=== PATIENT | male | born 1950 | race Caucasian/White ===

== ENCOUNTER 2021-03-15 11:49 | Inpatient (IN) | payer MEDICARE ==
[~2021-03-15] VITALS: Ht 177.8 cm; Wt 188.5 kg
[~2021-03-15 11:49] MED LIST: CYAN1000I; HYDACE7.5; VENL25
[2021-03-15 12:25] LABS: BASOPHILS ABSOLUTE AUTO 0.04 K/mm3 (0.00-0.23); BASOPHILS PERCENT AUTO 0 % (0-2); EOSINOPHILS ABSOLUTE AUTO 0.05 K/mm3 (0.00-0.68); EOSINOPHILS PERCENT AUTO 1 % (0-6); Hemoglobin 14.7 g/dL (13.5-17.5); IMMATURE GRAN ABSOLUTE AUTO 0.04 K/mm3 (0.00-0.10); IMMATURE GRAN PERCENT AUTO 0 % (0-1); LYMPHOCYTES ABSOLUTE AUTO 1.38 K/mm3 (0.84-5.20); LYMPHOCYTES PERCENT AUTO 14 % (21-46); MONOCYTES ABSOLUTE AUTO 0.65 K/mm3 (0.16-1.47); MONOCYTES PERCENT AUTO 7 % (4-13); Mean Corpuscular HGB 29.2 pg (26.0-34.0); Mean Corpuscular Volume 97 fL (80-100); Mean Platelet Volume 10.5 fL (9.1-12.4); NEUTROPHILS ABSOLUTE AUTO 7.47 K/mm3 (1.96-9.15); NEUTROPHILS PERCENT AUTO 78 % (41-73); Platelet Count 158 K/mm3 (150-400); RDW Coefficient Variation 16.4 % (11.7-14.2); RDW Standard Deviation 57.8 fL (35.1-46.3); Red Blood Cell Count 5.03 M/mm3 (4.30-5.90); White Blood Cell Count 9.63 K/mm3 (4.00-11.30)
[2021-03-15 12:40] LABS: Alanine Aminotransfer (ALT/SGP 39 U/L (12-78); Albumin, Blood 3.3 g/dL (3.4-5.0); Albumin/Globulin Ratio 0.9 (0.8-1.8); Alk Phos 100 U/L (50-136); Anion Gap 3 mmol/L (6-16); Aspartate Aminotrans (AST/SGOT 19 U/L (12-37); Bilirubin, Total 0.4 mg/dL (0.1-1.0); Blood Urea Nitrogen 26 mg/dL (8-24); Bun/Creatinine Ratio 21.1 (12.0-20.0); CO2, Blood 35 mmol/L (21-32); Calcium, Blood 8.6 mg/dL (8.5-10.1); Chloride, Blood 105 mmol/L (98-108); Creatinine, Blood 1.23 mg/dL (0.60-1.20); Globulin, Blood 3.5 g/dL (2.2-4.0); Glomerular Filtration Rate >60 (60-); Glucose, Blood 113 mg/dL (70-99); Potassium, Blood 4.2 mmol/L (3.5-5.5); Sodium, Blood 143 mmol/L (136-145); Total Protein, Blood 6.8 g/dL (6.4-8.2); Troponin I 0.222 ng/mL (0.000-0.040)
[2021-03-15 12:52] LABS: PCO2 Arterial 82.1 mmHg (35-45); PO2 Arterial 48.8 mmHg (80-100); pH Blood Arterial 7.28 (7.35-7.45)
[2021-03-15 13:22] LABS: Influenza A, PCR NEGATIVE (NEGATIVE); Influenza B, PCR NEGATIVE (NEGATIVE); Resp Syncytial Virus, PCR NEGATIVE (NEGATIVE); SARS-Cov-2 (COVID-19) PCR, MMC NEGATIVE (NEGATIVE)
[2021-03-15 14:25] LABS: Base Excess Venous 11.2 mmol/L; Bicarbonate Venous 31.3 mmol/L (24.0-30.0); PCO2 Venous 79.7 mmHg (38-42); PO2 Venous 97.8 mmHg (38-42); pH Blood Venous 7.29 (7.34-7.37)
[2021-03-15 14:26] LABS: International Normalized Ratio 1.03; Prothrombin Time Results 11.1 Sec (9.7-11.5)
--- NOTE | 2021-03-15 15:41 | NUR ---
Echocardiogram completed
--- NOTE | 2021-03-15 15:58 | NUR ---
WILL ASSESS CHART FOR HX OF INFECTIONS.
[2021-03-15 16:43] LABS: PO2 Arterial 72.5 mmHg (80-100)
[2021-03-15 16:44] LABS: PCO2 Arterial 87.8 mmHg (35-45); pH Blood Arterial 7.26 (7.35-7.45)
--- NOTE | 2021-03-15 18:01 | NUR ---
Pt minimally responsive on bipap. Assisted bedside nursing mittal catheter placed and ua sent for toxicology and ua. Will try to contact .
[2021-03-15 18:05] LABS: U Amphetamine Screen Not Detected; U Barbituate Screen Not Detected; U Benzodiazapine Screen Not Detected; U Buprenorphine Screen Not Detected; U Cannabinoids Screen Not Detected; U Cocaine Screen Not Detected; U Methadone Screen Not Detected; U Methamphetamine Screen Not Detected; U Opiates Screen Not Detected; U Oxycodone Screen Not Detected; U Phencyclidine Screen Not Detected; U Propoxyphene Screen Not Detected
[2021-03-15 18:09] LABS: Source, Urine Catheter
[2021-03-15 18:28] LABS: Bilirubin, Urine Neg (Neg); Blood, Urine 1+ (Neg); Glucose Qualitative, Urine Neg (Neg); Ketones, Urine Neg (Neg); Leukocyte Esterase, Urine 1+ (Neg); Nitrite, Urine Neg (Neg); Protein, Urine 1+ (Neg); Urobilinogen, Urine NORM (Normal)
[2021-03-15 18:30] LABS: Appearance, Urine Hazy (Clear); Color, Urine Yellow (P-Yellow)
[2021-03-15 18:31] LABS: Bacteria Few /hpf; Squamous Epithelial Cells Few /hpf (Few)
--- NOTE | 2021-03-15 18:44 | NUR ---
message left with pt son to contact hospital for plan of care
--- NOTE | 2021-03-15 18:49 | NUR ---
1525 ADMIT NOTE. PT WAS ADMITTED VIA STRETCHER TO ICU-4 AND MOVED OVER TO BED AT WHICH TIME HE BEGAN TO WAVE HIS ARM FOR ONLY A FEW MINUTES BUT THEN RETURNED TO AN OBTUNDED STATE WHERE EVEN A STERNAL RUB WAS NOT SUFFICENT TO AROUSE MUCH RESPONSE. PT BIPAP SETTING ADJUSTED PER RT AT AND DR RYAN REQUEST. PT CHAVARRIA WAS INSERTED PER SHADY LEIJA, AND UA AND UA TOX. WAS SENT TO LAB WITH PENDING RESULTS.
--- NOTE | 2021-03-15 18:59 | NUR ---
APPROX. 1800... PT TAKEN TO CT FOR CT HEAD. PT AROUSED AND CONFUSED WHEN LIFTED AND PLACE ON THE CT TABLE. PT REMAINED SOMEWHAT RESTLESS EVEN WHEN RETURNED AND THEN CALMED DOWN AND RETURNED TO SOMULANT STATE. I/O NOTED. PT BP WAS ELEVATED BUT WHEN CALM CAME DOWN TO 180 RANGE NOTED. PT HAS R UPPER ARM POWERGLIDE AND L HAND IV SITES BOTH SL. ABG'S ARE PENDING. NOC SHIFT TO REDRESS LOWER LEGS AND WILL CALL FAMILY NUMBERS PRECIOUSLY OBTAINED WERE NOT BEING ANSWERED AND INFORMATION WAS UNOBTAINABLE. ULTRASOUND IN FOR DVT STUDIES.
[2021-03-15 20:21] LABS: PCO2 Arterial 66.2 mmHg (35-45); PO2 Arterial 59.7 mmHg (80-100); pH Blood Arterial 7.34 (7.35-7.45)
--- NOTE | 2021-03-15 21:00 | NUR ---
ASUMTION OF CARE: PATIENT VERY DROWSY ON ASSESSMENT AND UNABLE TO WAKE UP ENOUGH TO SPEAK WITH PATIENT DIRECTLY. ADMISSION HX OBTAINED THROUGH . PATIENT BLOOD PRESSURE CONTINUES TO BE ELEVATED BUT PRNS ARE ORDERED IF NEEDED. PATIENT RESTING COMFORTABLY ON BIPAP AND ABG OBTAINED IS MUCH BETTER. WILL CONTINUE BIPAP FOR THE DURATION OF EVENING LONG TOLERATED AND GET REPEAT ABG IN THE AM
[2021-03-16 03:53] LABS: BASOPHILS ABSOLUTE AUTO 0.01 K/mm3 (0.00-0.23); BASOPHILS PERCENT AUTO 0 % (0-2); EOSINOPHILS PERCENT AUTO 0 % (0-6); Hematocrit 45.6 % (37.0-53.0); Hemoglobin 13.9 g/dL (13.5-17.5); IMMATURE GRAN ABSOLUTE AUTO 0.07 K/mm3 (0.00-0.10); IMMATURE GRAN PERCENT AUTO 1 % (0-1); LYMPHOCYTES PERCENT AUTO 6 % (21-46); MONOCYTES ABSOLUTE AUTO 0.39 K/mm3 (0.16-1.47); MONOCYTES PERCENT AUTO 4 % (4-13); Mean Corpuscular HGB 29.6 pg (26.0-34.0); Mean Corpuscular HGB Conc 30.5 g/dL (31.5-36.5); Mean Corpuscular Volume 97 fL (80-100); Mean Platelet Volume 10.5 fL (9.1-12.4); NEUTROPHILS ABSOLUTE AUTO 8.96 K/mm3 (1.96-9.15); NEUTROPHILS PERCENT AUTO 89 % (41-73); Platelet Count 158 K/mm3 (150-400); RDW Coefficient Variation 16.1 % (11.7-14.2); RDW Standard Deviation 57.3 fL (35.1-46.3); White Blood Cell Count 10.03 K/mm3 (4.00-11.30)
[2021-03-16 04:11] LABS: Alanine Aminotransfer (ALT/SGP 34 U/L (12-78); Albumin/Globulin Ratio 0.9 (0.8-1.8); Alk Phos 90 U/L (50-136); Anion Gap 4 mmol/L (6-16); Aspartate Aminotrans (AST/SGOT 15 U/L (12-37); Bilirubin, Total 0.3 mg/dL (0.1-1.0); Blood Urea Nitrogen 30 mg/dL (8-24); Bun/Creatinine Ratio 26.1 (12.0-20.0); CO2, Blood 37 mmol/L (21-32); Calcium, Blood 8.3 mg/dL (8.5-10.1); Chloride, Blood 104 mmol/L (98-108); Creatinine, Blood 1.15 mg/dL (0.60-1.20); Globulin, Blood 3.2 g/dL (2.2-4.0); Glomerular Filtration Rate >60 (60-); Glucose, Blood 242 mg/dL (70-99); Sodium, Blood 145 mmol/L (136-145); Total Protein, Blood 6.2 g/dL (6.4-8.2)
--- NOTE | 2021-03-16 06:33 | NUR ---
SUMMARY: PATIENT AGITATED AT TIMES BUT IS VERY REDIRECTABLE ONCE AWAKE. PATIENT OCCASIONALLY TRIES TO GET BIPAP OFF BUT THEN GOES BACK TO SLEEP VERY QUICKLY. PATIENT PLACED ON 4L NC TO BRUSH TEETH AND EAT OVERNIGHT WITH NO ISSUES WITNESSED. CO2 REMAINS IN 30S. PATIENT WORE BIPAP THE MAJORITY OF THE NIGHT. PATIENT STILL IN 1ST DEGREE HEART BLOCK BUT BP HAS REMAINED STABLE. FAMILY UPDATED MULTIPLE TIMES OVERNIGHT AND ALL QUESTIONS ANSWERED.
--- NOTE | 2021-03-16 11:29 | NUR ---
AM NOTE... JUST A LITTE BEFORE 0800 PT WAS TAKEN OFF OF BIPAP AND PLACED ON NC AT 4L BUT PT WAS QUITE CONFUSED AND BORDERLINE AGITATED. PT RETURNED TO BIPAP FOR ABOUT 2 HOURS AND THEN ABLE TO DECREASE O2 DOWN TO 2L. HOWEVER PT CONT TO BE VERY FORGETFUL AND DIFFICULT TO FOLLOW COMMMANDS. WILL ATTEMPT TO FOLLOW THIS W/O EXTRA MEDICATION AT THIS TIME. RESTRAINTS WERE NEEDED TO REMIND PT AN KEEP THE MASK AND NC ON.
[2021-03-16] MEDS ORDERED: CARV25 PO (14:46)
[2021-03-16] MEDS ORDERED: FURO40 PO (14:47)
[2021-03-16] MEDS ORDERED: NOVOLOG FL100 UNIT/3 (14:52)
[2021-03-16] MEDS ORDERED: LISI20 PO (14:53)
[2021-03-16] MEDS ORDERED: METF500 PO (14:53)
[2021-03-16] MEDS ORDERED: POTA10T PO (14:55)
[2021-03-16] MEDS ORDERED: Voltaren100 GM TOP (14:56)
--- NOTE | 2021-03-16 17:41 | NUR ---
Spiritual care note: Mr. Medley appeared pleasant and a bit confused. He smiles easily and made little jokes. I was tasked per admit trigger to speak to pt about advanced care planning. Per RN, pt was not mentally clear enought for this conversation. I will attempt to meet with family in coming days.
--- NOTE | 2021-03-16 18:21 | NUR ---
PT IS SETTING UP WATCHING TV, TAKLING TO FAMILY ON PHONE, FEEDING SELF AND TALKING TO STAFF. WHILE PT IS ALERT, HE REMAINS SOMEWHAT MILDLY CONFUSED AND WILLING SEEMS TO BE COVERING/COMPENSATING FOR SOME OF HIS LAPSES IN MEMORY. VS ARE NOTED AND IMPROVED WITH MEDICATION CHANGES. PT CBG NOTED AND IS EATING AND TAKING PO LIQUIDS WELL. PT HAS BEEN TOLERATING 2L NC SENCE JUST BEFORE 1100 THIS AM W/O SOB DESATURATION. HOWEVERM BIPAP REMAIN IN ROOM.
--- NOTE | 2021-03-16 22:46 | NUR ---
ASSUMPTION OF CARE PT SITTING UP IN BED ON 2L NC SPO2 94%. PT AWAKE AND CALM TALKING TO FAMILY MEMBER ON PHONE. VSS WITH EXCEPTION OF SBP, SCHEDULED BP MEDS GIVEN. PT ORIENTED EXCEPT TO DATE/TIME. CHAVARRIA PATENT AND DRAINING TO GRAVITY, URINE NOTED TO BE BLOOD TINGED, WILL CONTINUE TO MONITOR. IV'S CURRENTLY SALINE LOCKED.
[2021-03-17 03:38] LABS: PCO2 Arterial 60.9 mmHg (35-45); PO2 Arterial 66.9 mmHg (80-100)
[2021-03-17 04:38] LABS: BASOPHILS ABSOLUTE AUTO 0.02 K/mm3 (0.00-0.23); BASOPHILS PERCENT AUTO 0 % (0-2); EOSINOPHILS PERCENT AUTO 0 % (0-6); Hematocrit 46.3 % (37.0-53.0); Hemoglobin 14.3 g/dL (13.5-17.5); IMMATURE GRAN ABSOLUTE AUTO 0.04 K/mm3 (0.00-0.10); IMMATURE GRAN PERCENT AUTO 0 % (0-1); LYMPHOCYTES ABSOLUTE AUTO 1.02 K/mm3 (0.84-5.20); LYMPHOCYTES PERCENT AUTO 9 % (21-46); MONOCYTES ABSOLUTE AUTO 0.87 K/mm3 (0.16-1.47); MONOCYTES PERCENT AUTO 8 % (4-13); Mean Corpuscular HGB 29.5 pg (26.0-34.0); Mean Corpuscular HGB Conc 30.9 g/dL (31.5-36.5); Mean Corpuscular Volume 96 fL (80-100); Mean Platelet Volume 10.7 fL (9.1-12.4); NEUTROPHILS ABSOLUTE AUTO 8.93 K/mm3 (1.96-9.15); NEUTROPHILS PERCENT AUTO 82 % (41-73); Platelet Count 174 K/mm3 (150-400); RDW Coefficient Variation 16.4 % (11.7-14.2); RDW Standard Deviation 57.2 fL (35.1-46.3); Red Blood Cell Count 4.85 M/mm3 (4.30-5.90); White Blood Cell Count 10.88 K/mm3 (4.00-11.30)
[2021-03-17 04:57] LABS: Albumin, Blood 3.1 g/dL (3.4-5.0); Anion Gap 2 mmol/L (6-16); Blood Urea Nitrogen 31 mg/dL (8-24); Bun/Creatinine Ratio 27.4 (12.0-20.0); CHOL/HDL RATIO 5.6; CO2, Blood 37 mmol/L (21-32); Calcium, Blood 8.3 mg/dL (8.5-10.1); Chloride, Blood 102 mmol/L (98-108); Cholesterol 145 mg/dL (50-200); Creatinine, Blood 1.13 mg/dL (0.60-1.20); Glomerular Filtration Rate >60 (60-); Glucose, Blood 170 mg/dL (70-99); HDL Cholesterol 26 mg/dL (>39); LDL/HDL RATIO 3.1; Low Density Lipoprotein Chol 80 mg/dL (0-110); Phosphorus, Blood 3.1 mg/dL (2.5-4.9); Potassium, Blood 3.9 mmol/L (3.5-5.5); Sodium, Blood 141 mmol/L (136-145); Triglycerides 195 mg/dL (30-160); Very Low Density Lipoprot Chol 39 mg/dL (6-32)
--- NOTE | 2021-03-17 05:27 | NUR ---
TRANSFER/SHIFT SUMMARY PT ARRIVED TO THE UNIT AROUND 0025, ALERT, CALM, AND CONFUSED. PT WAS ORIENTED ONLY TO SELF. BP 172/86. HR 80'S. O2 SATS >90% ON 2LPM VIA NC. PT ABLE TO MOVE ALL EXTREMITIES WITH NORMAL STRENGTH. PERIPHERAL PULSES STRONG AND PRESENT. CHAVARRIA SHOWED RED/PINK URINE OUTPUT. CHAVARRIA FLUSHED WITH SEVERAL SMALL BLOOD CLOTS EMPTYING. CHAVARRIA CONTINUED TO DRAIN RED/PINK URINE WITH SOME SMALL CLOTS. PT DENIED ANY PAIN AT CHAVARRIA SITE BUT REPORTED PAIN IN EDEMATOUS SCROTUM. VITALS REMAIND STABLE T/O THE SHIFT. PT ON BIPAP FOR SHORT TIME, BECAME VERY ANXIOUS AND AGITATED AND PULLED OFF TELE, BIPAP, PULSE OX, AND WAS PULLING ON IV. PT STATED HE WANTED TO LEAVE BECAUSE HE WAS "TUCKED INTO A CUBBY" AND "THIS IS ALL A CONSPIRACY TO KILL ME". PT WAS EVENTUALLY CALMED AND REDIRECTED INTO BED. PT WAS THEN ON NASAL CANNULA AT 2LPM T/O THE REST OF THE SHIFT WITH IMPROVEMENT IN AGITATION.
[2021-03-17 09:34] LABS: PCO2 Arterial 68 mmHg (35-45); PO2 Arterial 53.5 mmHg (80-100); pH Blood Arterial 7.37 (7.35-7.45)
--- NOTE | 2021-03-17 18:04 | NUR ---
PT ABLE TO TRANSFER ASSIST X2 FROM BED TO BSC. PT HAS IMPROVING MENTATION. CHAVARRIA OUTPUT STILL HAS SEDIMENT AND SMALL RED CLOTS. BLOOD SUGARS REQUIRED CORRECTION EACH TIME. PT REQUESTED/RECEIVED 2 PROTEIN-RICH SNACKS. PT'S LEG WOUNDS REDRESSED. PT REPORTS NO FURTHER COMPLAINTS AT THIS TIME.
[2021-03-18 04:33] LABS: Albumin, Blood 3.1 g/dL (3.4-5.0); Anion Gap 2 mmol/L (6-16); Blood Urea Nitrogen 27 mg/dL (8-24); Bun/Creatinine Ratio 29.9 (12.0-20.0); CO2, Blood 37 mmol/L (21-32); Calcium, Blood 8.5 mg/dL (8.5-10.1); Chloride, Blood 102 mmol/L (98-108); Glomerular Filtration Rate >60 (60-); Glucose, Blood 186 mg/dL (70-99); Phosphorus, Blood 2.9 mg/dL (2.5-4.9); Potassium, Blood 4.1 mmol/L (3.5-5.5); Sodium, Blood 141 mmol/L (136-145)
[2021-03-18 05:29] LABS: PCO2 Arterial 64.2 mmHg (35-45); PO2 Arterial 60.1 mmHg (80-100); pH Blood Arterial 7.41 (7.35-7.45)
--- NOTE | 2021-03-18 05:29 | NUR ---
SHIFT SUMMARY NO ACUTE CHANGES THIS SHIFT. PT A&OX3. OCCASIONAL CONFUSION BUT REORIENTS EASILY. SP02>92% ON 1L NC. PT REFUSED BIPAP. TELEMETRY READS SR W/ PACS & PVCS, HR 80'S. PT HAD ELEVATED BP, MEDICATED W/ HYDRALAZINE X2 THIS SHIFT. PT HAS CHAVARRIA CATHETER DRAINING YELLOW URINE W/ SMALL RED CLOTS. PT C/O OF BACK PAIN, REPOSITIONED FOR PAIN RELIEF. PT SLEPT APPROX 2 HOURS DURING SHIFT, STATES HE DOES NOT SLEEP MUCH AT NIGHT. WATCHED TV MOST OF NIGHT. CALL LIGHT IN REACH. WILL GIVE REPORT TO ONCOMING NURSE.
[2021-03-18] MEDS ORDERED: AMLO5 PO (13:15)
[2021-03-18] MEDS ORDERED: ASPI325 PO (13:16)
[2021-03-18] MEDS ORDERED: ATOR40TA PO (13:17)
[2021-03-18] MEDS ORDERED: INSULANPEN SC (13:19)
[2021-03-18] MEDS ORDERED: COMBIVENT RESPIM4 G1 INH (13:20)
[2021-03-18] MEDS ORDERED: NICO21TP TOP (13:20)
[2021-03-18] MEDS ORDERED: ONDA4ODT MM (13:21)
[2021-03-18] MEDS ORDERED: NYSTATIN15 GM TOP (13:21)
--- NOTE | 2021-03-18 18:58 | NUR ---
PT DISCHARGED TO HOME AT 1730 WITH VIA WHEELCHAIR WITH RX LIST, OXYGEN THERAPY FOR HOME, AND NO CARDIAC MONITORING. PT AND EDUCATED ON RX LIST AND F/U APPTS, AND REPORTED NO ADDITIONAL QUESTIONS AT THIS TIME.
== END 2021-03-18 17:37 | disposition home health service (06) | DRG 280 ==
LOC: ER 11:49 → ERHOLD 14:04 → ICUE 14:04 → PCU 14:04 → ICUE 15:25 → PCU 03-17 00:25
PROVIDERS: Emergency Medicine; Internal Medicine Critical Care Medicine; Nurse Practitioner Acute Care; ADMIT Internal Medicine
PROC: 5A09357 Assistance with Respiratory Ventilation, Less than 24 Consecutive Hours, Continuous Positive Airway Pressure (ICD-10-PCS; principal; 2021-03-16)
DX: I11.0 Hypertensive heart disease with heart failure (principal); I21.A1 Myocardial infarction type 2; G92 Toxic encephalopathy; J96.21 Acute and chronic respiratory failure with hypoxia; J96.22 Acute and chronic respiratory failure with hypercapnia; J44.1 Chronic obstructive pulmonary disease with (acute) exacerbation; Z68.43 Body mass index [BMI] 50.0-59.9, adult; Z20.822 Contact with and (suspected) exposure to COVID-19; M19.90 Unspecified osteoarthritis, unspecified site; E66.01 Morbid (severe) obesity due to excess calories; F42.9 Obsessive-compulsive disorder, unspecified; G47.33 Obstructive sleep apnea (adult) (pediatric); E11.9 Type 2 diabetes mellitus without complications; I50.33 Acute on chronic diastolic (congestive) heart failure; I27.20 Pulmonary hypertension, unspecified; I44.0 Atrioventricular block, first degree; D51.0 Vitamin B12 deficiency anemia due to intrinsic factor deficiency; Z87.891 Personal history of nicotine dependence; Z79.4 Long term (current) use of insulin; Z79.899 Other long term (current) drug therapy; Z91.19 Patient's noncompliance with other medical treatment and regimen
CPT/HCPCS: 0241U; 36415; 36600; 51702; 70450; 71045; 80053; 80061; 80069; 81001; 82803; 82947; 83036; 83735; 83880; 84443; 84484; 85025; 85610; 85730; 93005; 93010; 93970; 94010; 94640; 94660; 94761; 94762; 96374; 96375; 99285-25; A9270; A9270-GY; C1751; C8923; J0360; J1644; J1940; J2930; Q9957

== ENCOUNTER 2022-03-02 09:10 | Inpatient (IN) | payer OTHER ==
[~2022-03-02] VITALS: Ht 177.8 cm; Wt 184.1 kg
[~2022-03-02 09:10] MED LIST changes: +AMLO5 PO; +ASPI325 PO; +ATOR40TA PO; +CARV25 PO; +COMBIVENT RESPIM4 G1 INH; +FURO40 PO; +INSULANPEN SC; +METF500 PO; +NICO21TP TOP; +NOVOLOG FL100 UNIT/3; +NYSTATIN15 GM TOP; +ONDA4ODT MM; +POTA10T PO; +Voltaren100 GM TOP; +ZESTRIL40 M1 PO
[2022-03-02 10:16] LABS: BASOPHILS ABSOLUTE AUTO 0.05 K/mm3 (0.00-0.23); BASOPHILS PERCENT AUTO 1 % (0-2); EOSINOPHILS ABSOLUTE AUTO 0.06 K/mm3 (0.00-0.68); EOSINOPHILS PERCENT AUTO 1 % (0-6); Hematocrit 44.1 % (37.0-53.0); Hemoglobin 13.3 g/dL (13.5-17.5); IMMATURE GRAN ABSOLUTE AUTO 0.07 K/mm3 (0.00-0.10); IMMATURE GRAN PERCENT AUTO 1 % (0-1); LYMPHOCYTES ABSOLUTE AUTO 0.78 K/mm3 (0.84-5.20); LYMPHOCYTES PERCENT AUTO 8 % (21-46); MONOCYTES ABSOLUTE AUTO 0.54 K/mm3 (0.16-1.47); MONOCYTES PERCENT AUTO 6 % (4-13); Mean Corpuscular HGB 29.2 pg (26.0-34.0); Mean Corpuscular HGB Conc 30.2 g/dL (31.5-36.5); Mean Corpuscular Volume 97 fL (80-100); Mean Platelet Volume 10.3 fL (9.1-12.4); NEUTROPHILS ABSOLUTE AUTO 7.97 K/mm3 (1.96-9.15); NEUTROPHILS PERCENT AUTO 84 % (41-73); Platelet Count 204 K/mm3 (150-400); RDW Coefficient Variation 15.1 % (11.7-14.2); RDW Standard Deviation 53.7 fL (35.1-46.3); Red Blood Cell Count 4.56 M/mm3 (4.30-5.90); White Blood Cell Count 9.47 K/mm3 (4.00-11.30)
[2022-03-02 10:19] LABS: Base Excess Venous 9.8 mmol/L; PCO2 Venous 65.1 mmHg (38-42); pH Blood Venous 7.34 (7.34-7.37)
[2022-03-02 10:47] LABS: Alanine Aminotransfer (ALT/SGP 47 U/L (12-78); Albumin, Blood 3.6 g/dL (3.4-5.0); Albumin/Globulin Ratio 0.9 (0.8-1.8); Alk Phos 101 U/L (50-136); Anion Gap 4 mmol/L (6-16); Aspartate Aminotrans (AST/SGOT 21 U/L (12-37); Bilirubin, Total 0.6 mg/dL (0.1-1.0); Blood Urea Nitrogen 14 mg/dL (8-24); Bun/Creatinine Ratio 19.2 (12.0-20.0); CO2, Blood 34 mmol/L (21-32); Calcium, Blood 9.1 mg/dL (8.5-10.1); Chloride, Blood 100 mmol/L (98-108); Creatinine, Blood 0.73 mg/dL (0.60-1.20); Globulin, Blood 4.1 g/dL (2.2-4.0); Glomerular Filtration Rate >60 (60-); Glucose, Blood 152 mg/dL (70-99); Potassium, Blood 3.9 mmol/L (3.5-5.5); Sodium, Blood 138 mmol/L (136-145); Total Protein, Blood 7.7 g/dL (6.4-8.2)
[2022-03-02] MEDS ORDERED: ASPI81CH PO (11:07)
[2022-03-02] MEDS ORDERED: CELE100 PO (11:08)
[2022-03-02 12:10] LABS: Influenza A, PCR NEGATIVE (NEGATIVE); Influenza B, PCR NEGATIVE (NEGATIVE); Resp Syncytial Virus, PCR NEGATIVE (NEGATIVE); SARS-Cov-2 (COVID-19) PCR, MMC NEGATIVE (NEGATIVE)
[2022-03-02 12:43] LABS: PCO2 Arterial 70 mmHg (35-45); PO2 Arterial 66.8 mmHg (80-100); pH Blood Arterial 7.32 (7.35-7.45)
--- NOTE | 2022-03-02 14:00 | NUR ---
ADMIT PT ARRIVED TO ICU ROOM 4 VIA ER BED AT 1340. PT ON BIPAP 16/8, FIO2 30%. PT AWAKENS TO VERBAL STIMULI AND ANSWERS SOME QUESTIONS APPROPRIATELY. PT QUICKLY BACK TO SLEEP WHEN NOT TALKING. VITAL SIGNS STABLE. IV'S SALINE LOCKED. PT WITH REDDENED AND DRY SKIN TO BLE'S BELOW KNEES. SMALL ULCER TO RIGHT REED NOTED. SEE PHOTOS IN CHART. WILL CONTINUE TO MONITOR.
[2022-03-02 15:46] LABS: PCO2 Arterial 61.8 mmHg (35-45); PO2 Arterial 66.3 mmHg (80-100); pH Blood Arterial 7.38 (7.35-7.45)
[2022-03-02 17:12] LABS: Source, Urine Foley catheter
[2022-03-02 17:27] LABS: Appearance, Urine Clear (Clear); Bilirubin, Urine Neg (Neg); Blood, Urine 1+ (Neg); Color, Urine Yellow (P-Yellow); Glucose Qualitative, Urine Neg (Neg); Ketones, Urine Neg (Neg); Leukocyte Esterase, Urine Neg (Neg); Nitrite, Urine Neg (Neg); Protein, Urine 2+ (Neg); Specific Gravity, Urine 1.015 (1.003-1.022); Urobilinogen, Urine NORM (Normal)
--- NOTE | 2022-03-02 18:17 | NUR ---
SHIFT SUMMARY PT WITH CBG OF 58 AND MORE DIFFICULT TO ROUSE THIS EVENING. PT ABLE TO TAKE PO SIPS OF ORANGE JUICE AND TOLERATED BEING OFF BIPAP WELL. PT MORE AWAKE AND ALERT WITH NOTED INCREASE TO CBG. PT CURRENTLY ON 10L 02 VIA [employer] NC. PT DENIES SOB OR DIFFICULTY BREATHING. VITAL SIGNS STABLE. PT HYPERTENSIVE. IV'S REMAIN SALINE LOCKED. CHAVARRIA PLACED WITH IMMEDIATE RETURN OF GREATER THAN 1000 ML OF CLEAR YELLOW URINE OUTPUT. WILL CONTINUE TO MONITOR AND REPORT OFF TO ONCOMING RN.
--- NOTE | 2022-03-02 19:14 | NUR ---
ASSUMPTION OF CARE PT IS SITTING UP IN BED TALKING TO HIS ON THE TELEPHONE. HE IS ON 10L HI-FLOW NC. PLAN TO PUT BACK ON BIPAP TONIGHT. HE IS ALERT AND ORIENTED AT THIS TIME. HR 60S-80S AFLUTTER. CHAVARRIA PATENT AND DRAINING CLEAR/YELLOW URINE. SEE SHIFT ASSESSMENT FOR MORE INFORMATION.
[2022-03-02 20:11] LABS: Amorphous Light (0-Heavy); Bacteria Not Seen /hpf; Red Blood Cells, Urine 0-2 /hpf (0-2); Squamous Epithelial Cells Not Seen /hpf (Few); White Blood Cells, Urine Not Seen /hpf (0-5)
[2022-03-03 03:42] LABS: Anion Gap 3 mmol/L (6-16); Blood Urea Nitrogen 21 mg/dL (8-24); Bun/Creatinine Ratio 19.3 (12.0-20.0); CO2, Blood 35 mmol/L (21-32); Calcium, Blood 9.1 mg/dL (8.5-10.1); Chloride, Blood 102 mmol/L (98-108); Creatinine, Blood 1.09 mg/dL (0.60-1.20); Glomerular Filtration Rate >60 (60-); Glucose, Blood 115 mg/dL (70-99); Magnesium, Blood 2.5 mg/dL (1.6-2.4); Potassium, Blood 4.3 mmol/L (3.5-5.5); Sodium, Blood 140 mmol/L (136-145)
--- NOTE | 2022-03-03 05:55 | NUR ---
SHIFT SUMMARY PT SLEPT THROUGH MOST OF NIGHT AND WAS ON BIPAP. HE HAS BEEN OFF BIPAP SINCE APPROX 0430 AND ON 10L HI-FLOW NC. HE REMAINS SALINE LOCKED. PT IS ALERT AND ORIENTED DESPITE HISTORY OF CONFUSION. HE REMAINS IN AFLUTTER WITH HR 60S-70S. SBP 120S-130S. CHAVARRIA PATENT AND DRAINING RED AND YELLOW URINE. DR AMARAL AWARE OF HEMATURIA. PT OCCASIONALLY C/O "BLADDER SPASMS". PLAN TO MONITOR AND IRRIGATE IF NECESSARY, CONTINUE LOVENOX AT THIS TIME. VSS, WILL REPORT TO ONCOMING RN.
--- NOTE | 2022-03-03 07:33 | NUR ---
ASSUMPTION OF CARE RECEIVED REPORT FROM SHAUNA MARTINEZ AT 0472. ASSUMED CARE OF PATIENT. PATIENT SITTING UP IN BED, A/O, VITALS STABLE. COMMUNICATING NEEDS APPROPRIATELY. REVIEWED ORDERS, WILL TREAT PRESCRIBED.
--- NOTE | 2022-03-03 18:23 | NUR ---
SHIFT SUMMARY PATIENT ON NASAL CANNULA AT START OF SHIFT. A/O, FOLLOWS DIRECTIONS. INDEPENDENT WITH MEALS, 2 PERSON STANDBY ASSIST TO COMMODE. STATUS CHANGED TO MEDICAL BY DR. CEBALLOS. BLOODY URINE NOTED IN CHAVARRIA CLEARED THROUGH SHIFT, NOW YELLOW WITH SEDIMENT. WILL CONTINUE TO MONITOR AND REPORT TO ONCOMING RN.
--- NOTE | 2022-03-03 19:55 | NUR ---
ASSESSMENT/ASSUMED CARE PT SITTING UP IN BED WATCHING TV. DENIES PAIN OR DISCOMFORT. LUNGS CLEAR BUT DECREASED THROUGHOUT ON 8 LITERS HIFLOW NC. RESP EVEN AND NONLABORED. OCC COUGH WITH THICK YELLOW SPUTUM PER PATIENT. HEART RATE IRREGULAR 60-70'S AFLUTTER. BP STABLE. EDEMA AND REDNESS NOTED TO LOWER EXT. BT+ ABD ROUND, OBESE AND FIRM. DENIES N/V. IV TO RIGHT AC SALINE LOCKED, SITE CLEAR, FLUSHED WITHOUT DIFFICULTY. IV LEFT FOREARM SALINE LOCKED, SITE CLEAR, FLUSHED WITHOUT DIFFICULTY. CHAVARRIA CATH PATENT DRAIN DARK YELLOW/NILES URINE. MAEW. PT VERY TALKATIVE.
--- NOTE | 2022-03-04 03:24 | NUR ---
PAIN PT AWAKE. LAB AT BEDSIDE. PT C/O PAIN 9/10 TO KNEES AND HIPS. MED WITH TYLENOL
[2022-03-04 03:41] LABS: Hematocrit 41.9 % (37.0-53.0); Hemoglobin 12.4 g/dL (13.5-17.5); Mean Corpuscular HGB Conc 29.6 g/dL (31.5-36.5); Mean Corpuscular Volume 98 fL (80-100); Platelet Count 196 K/mm3 (150-400); RDW Coefficient Variation 15.5 % (11.7-14.2); RDW Standard Deviation 55.1 fL (35.1-46.3); Red Blood Cell Count 4.27 M/mm3 (4.30-5.90); White Blood Cell Count 9.86 K/mm3 (4.00-11.30)
[2022-03-04 04:00] LABS: Albumin, Blood 3.3 g/dL (3.4-5.0); Anion Gap 6 mmol/L (6-16); Blood Urea Nitrogen 32 mg/dL (8-24); Bun/Creatinine Ratio 24.8 (12.0-20.0); CO2, Blood 34 mmol/L (21-32); Calcium, Blood 8.9 mg/dL (8.5-10.1); Chloride, Blood 100 mmol/L (98-108); Creatinine, Blood 1.29 mg/dL (0.60-1.20); Glomerular Filtration Rate 55 (60-); Glucose, Blood 158 mg/dL (70-99); Phosphorus, Blood 5.6 mg/dL (2.5-4.9); Potassium, Blood 4.3 mmol/L (3.5-5.5); Sodium, Blood 140 mmol/L (136-145)
--- NOTE | 2022-03-04 06:04 | NUR ---
SHIFT SUMMARY PT AWAKE ALL NIGHT. SITTING UP IN BED WATCHING TV OR SITTING ON THE EDGE OF THE BED. PT REFUSES TO TURN ONTO SIDE WHILE IN BED. C/O PAIN TO KNEES AND HIPS DURING THE NIGHT MED WITH TYLENOL. LUNGS DECREASED THROUGHOUT ON 8 LITERS HIFLOW NS. PT REFUSED TO USE BIPAP DURING THE NIGHT. HEART RATE CONT TO BE IRREGULAR AFLUTTER 60-70'S. BP STABLE. PT PULLED IV TO RIGHT ARM OUT. IV LEFT ARM SALINE LOCKED. PT ASKING WHEN HE CAN GO HOME. REPORT TO ON COMING NURSE
--- NOTE | 2022-03-04 07:41 | NUR ---
ASSUMPTION OF CARE RECEIVED REPORT FROM SANDEE MARTINEZ AT 0710. ASSUMED CARE OF PATIENT. PATIENT IN BED WITH EYES CLOSED, 8L 02 VIA HI-FLOW IN PLACE WITH SATS ABOVE 95%. PATIENT EASILY AWOKE TO VERBAL STIMULI. ORIENTED TO SITUATION AND PLACE, FOLLOWED DIRECTIONS APPROPRIATELY. VITALS STABLE. CHAVARRIA PATENT AND DRAINING CLEAR, RED URINE. WILL REVIEW ORDERS AND TREAT PRESCRIBED.
--- NOTE | 2022-03-04 14:15 | NUR ---
UPDATE SON TO BEDSIDE, PATIENT MORE LETHARGIC WITH INTERMITTENT CONFUSION. UNABLE TO STAY AWAKE FOR LONG PERIODS OF TIME AND ENGAGE IN CONVERSATION. BIPAP WAS PLACED AT 30% FIO2, DEANGELO KIMBROUGH NOTIFIED AND DR. WRIGHT NOTIFIED AT 1410, RECEIVED ORDERS FOR AN ABG. WILL AWAIT RESULTS.
--- NOTE | 2022-03-04 14:51 | NUR ---
NOTIFIED DR. WRIGHT OF C02 LEVEL. PATIENT REMAINS ON BIPAP, SON REMAINS TO BEDSIDE.
--- NOTE | 2022-03-04 16:01 | NUR ---
REASSESSMENT PATIENT MINIMALLY RESPONSIVE TO PHYHSICAL STIMULI. TOLERATING AND COOPERATIVE WITH BIPAP 16/8, 30% FIO2. SPO2 ABOVE 95%. TOLERATING REPOSITIONG, USING CEILING LIFT. ELEVATING EXTREMITIES ON PILLOWS. URINE OUTPUT CLEAR, NILES IN COLOR. WILL CONTINUE TO MONITOR.
--- NOTE | 2022-03-04 17:47 | NUR ---
SHIFT SUMMARY PATIENT INCREASINGLY LETHARGIC AND CONFUSED THROUGH SHIFT. NOTIFIED DR. WRIGHT PREVIOUSLY CHARTED REGARDING CHANGES, ABG WAS DRAWN AND PATIENT PLACED ON BIPAP PER ELEVATED C02. PATIENT AROUSABLE, ORIENTED BUT DOES NOT STAY AWAKE AND ENGAGE IN CONVERSATION. BIPAP 16/, FI02 30% SP02 ABOVE 95%, UNTIL 1745 PATIENT AWOKE, ORIENTED WITH NO MEMORY OF AFTERNOON. BIPAP REMOVED TO 4L 02 VIA HIFLOW NASAL CANNULA. PATIENT FEEDING SELF DINNER. VITALS STABLE WITH CALL LIGHT IN REACH. WILL CONTINUE TO MONITOR AND REPORT TO ONCOMING RN.
--- NOTE | 2022-03-04 19:20 | NUR ---
ASSESSMENT/ASSUMED CARE PT SITTING UP IN BED WATCHING TV AND USING PHONE. PT UPSET STATES,"MY FAMILY ARE SAYING I AM GOING TO TOMORROW. I DON'T KNOW WHO TOLD THEM THAT OR WHERE IT IS COMING FROM, BUT I MAKES ME MAD. I FEEL BETTER NOW THAN I HAVE. I'M NOT DYING TOMORROW AND NO ONE HAD BETTER TRY AND KILL ME". TALKED WITH PT ABOUT HIS WISHES. PT STATES,"I WANT EVERYTHING DONE. I WANT TO LIVE". TALKED WITH PT ABOUT CHANGES HE NEEDS TO MAKE IN HIS LIFE AND ABOUT USING THE BIPAP WHEN HE IS SLEEPING. PT STATES,"I'M GOING TO USE IT TONIGHT". PT THAN CALLED AND TALKED WITH . LUNGS CLEAR BUT DECREASED ON HIFLOW NC AT 4 LITERS. DENIES SOB OR COUGH. HEART RATE IRREGULAR AFLUTTER IN THE 60'S. BP STABLE. EDEMA AND DISCOLORATION NOTED TO LOWER EXT. PT MOVING EXT AND SHIFTING SEFL IN BED. REFUSING TO TURN AT THIS TIME. BT+ABD ROUND, OBESE AND FIRM. DENIES N/V. CHAVARRIA CATH PATENT DRAINING YELLOW URINE. IV RIGHT FOREARM SALINE LOCKED, ABLE TO DRAW BLOOD AND FLUSH WITHOUT DIFFICULTY.
--- NOTE | 2022-03-04 21:18 | NUR ---
BIPAP HS CARE DONE AND PT ATE 100% OF SANDWICH FOR HS SNACK. PLACED BIPAP ON. PT TOLERATED FOR ALL OF 2 MIN THAN YELLED,"GET THIS THING OFF". PLACED BACK ON 4 LITERS HI FLOW NC. EXPLAINED NEED FOR BIPAP. PT STATED,"WHEN I GO TO SLEEP CAN YOU COME AND PUT IT ON ME". RT CALLED TO TRY AND [employer] SETTINGS TO HELP PT TOLERATED BIPAP TONIGHT.
--- NOTE | 2022-03-04 21:27 | NUR ---
BIPAP RT PLACED PT ON BIPAP WITH SETTINGS 14/8 FIO2 30%.
--- NOTE | 2022-03-05 05:53 | NUR ---
SHIFT SUMMARY PT PULLED BIPAP OFF THIS AM. USED BIPAP FOR TOTAL OF 6 1/2 HRS DURING THE NIGHT. PT WAS UNABLE TO TOLERATED SETTINGS 16/8. RT CHANGED BIPAP SETTINGS TO 14/8 FIO2 30%, THAN PT WAS ABLE TO TOLERATED. CURRENTLY ON 4 LITERS HIFLOW O2 NC. RESP EVEN AND NONLABORED. TURNED USING THE CEILING LIFT DURING THE NIGHT. VSS. PT HAD TWO SANDWICHES DURING THE NIGHT. CHAVARRIA CATH PATENT IMPROVED COLOR NOTED DURING THE NIGHT. DECREASED BLEEDING AROUND MEATUS. TALKED WITH PT ABOUT IMPORTANCE REGARDING USING THE BIPAP AND FOLLOWING MEDICAL DIRECTION. REPORT TO ON COMING NURSE
--- NOTE | 2022-03-05 06:24 | NUR ---
PAIN PT C/O PAIN TO HIPS, KNEES AND LOW BACK 10/10 MED WITH TYLENOL. PT CONFUSE THIS MORNING ASKING,"AM I IN A PARKING LOT? WHAT TIME IS MY APPOINTMENT"? REORIENTED TO PLACE AND TIME. BED PLACED IN CHAIR POSITION
[2022-03-05 06:32] LABS: Base Excess Venous 9.6 mmol/L; Bicarbonate Venous 30.1 mmol/L (24.0-30.0); PCO2 Venous 76.6 mmHg (38-42); PO2 Venous 42 mmHg (38-42); pH Blood Venous 7.28 (7.34-7.37)
[2022-03-05 15:31] LABS: Albumin, Blood 3.2 g/dL (3.4-5.0); Anion Gap 3 mmol/L (6-16); Blood Urea Nitrogen 43 mg/dL (8-24); Bun/Creatinine Ratio 36.1 (12.0-20.0); CO2, Blood 35 mmol/L (21-32); Chloride, Blood 101 mmol/L (98-108); Creatinine, Blood 1.19 mg/dL (0.60-1.20); Glomerular Filtration Rate >60 (60-); Glucose, Blood 134 mg/dL (70-99); Potassium, Blood 4.5 mmol/L (3.5-5.5); Sodium, Blood 139 mmol/L (136-145)
--- NOTE | 2022-03-05 16:59 | NUR ---
Visit made to review pt's newly completed AD. Unfortunately, alternate decision makers also signed as witnesses, invalidating the advanced directive. I reviewed pt's expressed wishes with him and his current FULL CODE orders that may not be aligned with his expressed wishes in AD. Pt verbalized that he would not want CPR or intubation but he also wanted his son to decide or give input. I called son to inform about the need for witness signatures and also reviewed what he understood his dad's wishes to be. He stated that after completing the AD with him today, that it was very clear to him that his dad would NOT want CPR or intubation but felt conflicted about that and "didn't wnat it advertised". This corroborated what I understood from my conversation with pt just now. I discussed this with his nurse and hospitalist. VO obtained and entered for DNR status. Planned with son to meet with him when he returned on Tuesday to correctly complete the AD and get copies entered into his dad's medical records.
--- NOTE | 2022-03-05 18:15 | NUR ---
NO ACUTE EVENTS THIS SHIFT. PT WAS AWAKE AND ALERT TODAY. ORIENTED X4. MAKES NEEDS KNOWN. SAT IN CHAIR FOR PART OF THE MORNING. 4L NC. LUNGS DIM. A FLUTTER WITH RATE 60S. GOOD APPETITE. DRANK 900CC FLUID TODAY. 1300CC UOP.
--- NOTE | 2022-03-05 22:02 | NUR ---
ASSUMED CARE AT 1900 PATIENT IS ALERT AND ORIENTED X4, KNOWS PLACE, YEAR, MONTH, SELF, AND FOLLOW COMMANDS. NONSENSICLE AT TIMES AND FORGETFULL. 02 SATS 95% ON 4L VIA NC, BIPAP WHILE SLEEPING 14/8 30%. LS CLEAR TO DIMINSHED. TACHYPNIEC AT TIMES RR 30s. HR A FLUTTER @60s-80s. BP HYPERTENSIVE, MEDICATED PER EMAR. CHAVARRIA DRAINING TO GRAVITY, CLEAR YELLOW. REPOSITIONED Q2 HOURS. CALL LIGHT IN REACH. SEE SHIFT ASSESSMENT FOR MORE DETAIL.
--- NOTE | 2022-03-06 00:41 | NUR ---
REPORT GIVEN TO DICTAPHONE OPERATOR, PATIENT TO PCU 4
--- NOTE | 2022-03-06 02:17 | NUR ---
Pt tranferred from ICU. VSS on 4L oxygen. Pt is awake and wants to watch TV for awhile before going back on CPAP. Snack was given. Reece in place and draining well.
--- NOTE | 2022-03-06 05:19 | NUR ---
Mortgage Sales Manager Note: Pt transferred from ICU around midnight. Pt A&O, but forgetful and can get anxious and agitated easily. Pt answers orientation questions well, but then seems confused about some aspects of his care and is forgetful. Attempted pulling at mittal in ICU, but hasn't pulled at it too much in PCU. VSS on 4L nasal canula when awake and then BIPAP when sleeping. Pt has been on BIPAP since 299. BLE edema. Tele: aflutter 60-80s. 1500ml fluid restriction reinforced, ice chips given to hold pt over until AM. Mittal in place and draining well. Dark colored urine, the blood colored urine seemed to clear up. ICU nurse reported bloody urine after pt pulled at mittal.
[2022-03-06 12:18] LABS: Anion Gap 4 mmol/L (6-16); Blood Urea Nitrogen 38 mg/dL (8-24); CO2, Blood 34 mmol/L (21-32); Calcium, Blood 8.9 mg/dL (8.5-10.1); Chloride, Blood 102 mmol/L (98-108); Creatinine, Blood 0.95 mg/dL (0.60-1.20); Glomerular Filtration Rate >60 (60-); Glucose, Blood 144 mg/dL (70-99); Phosphorus, Blood 4.3 mg/dL (2.5-4.9); Potassium, Blood 4.6 mmol/L (3.5-5.5); Sodium, Blood 140 mmol/L (136-145)
[2022-03-07 04:46] LABS: PCO2 Arterial 71.4 mmHg (35-45); PO2 Arterial 66.2 mmHg (80-100); pH Blood Arterial 7.33 (7.35-7.45)
--- NOTE | 2022-03-07 05:05 | NUR ---
SHIFT SUMMARY: PATIENT TRANSFERED UP FROM PCU. SAT 100% ON 5L, TURNED PATIENT DOWN TO BASELINE 3L. E/U RESP. DIMINSHED BREATH SOUNDS. PATIENT WAS TO BE ON OVERNIGHT SLEEP STUDY. HOWEVER, HE WAS EXTREMELY RESTLESS AND IMPULSIVE THROUGH THE NIGHT. HE WOULD SLEEP IN SHORT 10 MIN INTERVALS AND THEN CALL OUT. PATIENT PULLING AT CHAVARRIA AND LINES CONSTATNTLY. COMPLAINING OF SHARP PAIN DUE TO CHAVARRIA AND THREATENED TO PULL IT OUT IF NOT REMOVED BY STAFF. PATIENT STATED HE USES A URINAL AT HOME INDEPENDENTLY. LEFT ROOM TO GATHER SUPPLIES AND UPON MY RETURN PATIENT HAD STAT LOCK OFF AND WAS ATTEMPTING TO REMOVE CHAVARRIA. DECISION MADE TO REMOVE CHAVARRIA PROPERLY. PAIN TREATED PER EMAR. CRITICAL C02 REPORTED 71.4, MD NOTIFIED, ORDER FOR BIPAP TO BE PLACED. EXPRESSED PATIENTS DIFFICULTY OVERNIGHT WITH IMPULSIVITY, PULLING LINES, AND ANXIETY TO MD AND REQUESTED PRN ANXIETY MEDICATION. MELATONIN ORDERED.
--- NOTE | 2022-03-07 17:05 | NUR ---
SHIFT SUMMARY: PT CONFUSED, PULLING OFF TELE LEADS AND OXIMETRY, SHOUTING FOR ATTENTION, DEMANDING THINGS LIKE GETTING OOB, AT START OF SHIFT. O2 SAT 96% ON 3 L/MIN NC AFTER SWITCHING FROM BIPAP; IS A CO2 RETAINER, DECREASED O2 TO 2 L/MIN NC WITH O2 SAT 90-92% AND CHANGED OXIMETRY ALARM PARAMETERS TO ALARM IF O2 SAT DECREASES TO < 87%. MENTATION HAS IMPROVED OVER THE COURSE OF THE DAY. EDUCATED PATIENT ABOUT THE EFFECTS OF HIGH CO2 IN THE BLOODSTREAM AND THE IMPORTANCE OF KEEPING MONITORS ON, TO WHICH HE VERBALIZED UNDERSTANDING BUT STILL WILL TAKE OFF OXIMETRY OCCASIONALLY. TRANSFERRING FROM BED TO CHAIR WITH 2 PERSON AND GAIT BELT; ENCOURAGED PT TO KEEP GETTING UP THROUGHOUT THE DAY, AND IF HE GETS STRONG ENOUGH HE WOULD BE ABLE TO TAKE A SHOWER LONG HE CAN WALK THERE. CONTINUES YELLING OUT INSTEAD OF USING HIS CALL LIGHT. USING BIPAP WHEN SLEEPING. USING URINAL WITH ASSISTANCE, VOIDING FINE S/P CHAVARRIA REMOVAL THIS MORNING. REQUESTED TO HAVE CATHETER PLACED AGAIN, BUT MORE FOR CONVENIENCE RATHER THAN RETENTION. C/O GENERALIZED PAIN, RELIEVED WITH TYLENOL.
--- NOTE | 2022-03-08 04:56 | NUR ---
Patient is alert and oriented x3 forgetful. He is able to stand on his feet, but only for a few minutes. He is attention seeking, does not use call light sometimes and just yells. He is non compliant with the sleep study. He does not sleep. He sometimes takes off his oxygen. Placed a condom cath due to incontinence. Patient provided proper snacks and fluid restriction of 1500 is followed. Shortness of breath upon excertion. Call light within reachl.
[2022-03-08 05:02] LABS: Albumin, Blood 3.2 g/dL (3.4-5.0); Anion Gap 3 mmol/L (6-16); Blood Urea Nitrogen 30 mg/dL (8-24); Bun/Creatinine Ratio 38.8 (12.0-20.0); CO2, Blood 36 mmol/L (21-32); Calcium, Blood 9.2 mg/dL (8.5-10.1); Chloride, Blood 101 mmol/L (98-108); Creatinine, Blood 0.77 mg/dL (0.60-1.20); Glomerular Filtration Rate >60 (60-); Glucose, Blood 136 mg/dL (70-99); Magnesium, Blood 2.5 mg/dL (1.6-2.4); Phosphorus, Blood 2.6 mg/dL (2.5-4.9); Potassium, Blood 4.2 mmol/L (3.5-5.5); Sodium, Blood 140 mmol/L (136-145)
--- NOTE | 2022-03-08 18:26 | NUR ---
END OF SHIFT SUMMARY: PATIENT DENIED PAIN OR DISCOMFORT THROUGHOUT THE DAY. PATIENT SAT AT BEDSIDE OR SAT UPRIGHT IN BED INDEPENDENTLY. PATIENT DROWSY/FELL ASLEEP EASILY THROUGHOUT THE DAY. PATIENT'S O2 SATURATIONS STABLE THROUGHOUT THE DAY. FROM 93%-98% ON O2. PATIENT CONTINUES TO PULL OFF TELEMETRY LEADS, CONTINUOUS BIOX AND OXYGEN PERIODICALLY THROUGHOUT THE DAY EVEN WITH EDUCATION. PATIENT ALLOWS STAFF TO REPLACE THE EQUIPMENT AND DOES NOT SEEM TO BE AWARE THAT HE IS PULLING IT OFF. PATIENT VISITED BY HIS . SHE REPORTED THAT THE BEST WAY TO GET HIM TO SLEEP WAS TO "JUST PUT HIS MASK ON". PATIENT REPORTED THAT HE WOULD LIKE TO DO THE SLEEP STUDY TONIGHT. HE AGREED WITH THE RN THAT HE WOULD WEAR THE BIPAP DURING THE NIGHT INSTRUCTED. DISCUSSED WITH DR. RANGEL AND RT. NEW ORDER ENTERED.
--- NOTE | 2022-03-09 06:00 | NUR ---
Patient is alert and oriented x3, forgetful of place. no complains of pain. dependent on oxygen. patient refuses to wear bipap. refuses insulin last night. sleepy study did not occur because patient did not sleep. He stays up watching TV or just sitting at the edge of the bed. He is able to use urinal and walks to the commode, but will prefer for you to do things for him. Spoke with and update her of his condition. No signs of distress. Patient had one giant bowel movement. Patient sits at the edge of his bed most of the time. Call light within reach.
--- NOTE | 2022-03-09 13:00 | NUR ---
Had previously planned to meet with son on Tuesday to help them correctly complete and AD. No contact with son since Tuesday when code status discussed and changed per pt/family's stated wishes to DNR. I completed a POLST based on pt's wishes and placed at room for Dr cuenca. POLST not signed yet by Dr. Lewis Care to keep checking and get to medical records when fully signed. Pt needing encouragement and motivation to participate more fully with therapy for goal of SNF stay before returning home per IDT meeting this am.
--- NOTE | 2022-03-09 18:01 | NUR ---
SHIFT SUMMARY; PATIENT REMAINS CONFUSED THROUGHOUT DAY. HE YELLS OUT HELP AND DOES NOT USE CALL LIGHT. ATTEMPTS TO REORIENT GARTH ARE SUCCESSFUL FOR A FEW MINUTES HOWEVER BEHAVIOR SHORTLY REPEATS ITSELF. PATIENT IS ABLE TO WORK WITH PT OT TODAY AND STAND WITH A ONE PERSON ASSIST. HE USES URINAL FOR VOIDING AND IS CONTINENT. HE DOES NOT HAVE A BOWEL MOVEMENT THIS AFTERNOON. PATIENT IS ABLE TO FEED HIMSELF AND TO MAKE HIS WANTS AND NEEDS KNOWN. HE DOES NOT REQUIRE COVERAGE FOR ELEVATED BLOOD SUGARS TODAY. HIS SKIN ON BILATERAL LOWER EXTREMITIES IS RED AND HOT TOO TOUCH. HE HAS SCAB TO LEFT BUTTOCK AND VARIOUS ABRASIONS TO BACK AND BUTTOCK THAT ARE IN VARIOUS STAGES OF HEALING NON OF THEM OPEN OR REQUIRE BANDAIDS. HIS VITAL SIGNS ARE STABLE. HE IS NOT FEBRILE. PATIENT ABLE TO TAKE HIS MEDICATIONS WHOLE WITH WATER. WILL CONTINUE TO MONITOR THIS PATIENT CLOSELY UNTIL HAND OFF AT SHIFT CHANGE.
[2022-03-10 04:29] LABS: Albumin, Blood 3.2 g/dL (3.4-5.0); Anion Gap 3 mmol/L (6-16); Blood Urea Nitrogen 25 mg/dL (8-24); Bun/Creatinine Ratio 31.1 (12.0-20.0); CO2, Blood 36 mmol/L (21-32); Calcium, Blood 8.9 mg/dL (8.5-10.1); Chloride, Blood 100 mmol/L (98-108); Glomerular Filtration Rate >60 (60-); Glucose, Blood 168 mg/dL (70-99); Phosphorus, Blood 3.4 mg/dL (2.5-4.9); Potassium, Blood 4.1 mmol/L (3.5-5.5); Sodium, Blood 139 mmol/L (136-145)
--- NOTE | 2022-03-10 04:32 | NUR ---
SHIFT SUMMARY PT NEEDS REDIRECTION AT TIMES ON HOW TO USE THE CALL LIGHT. PT CAPABLE OF REPOSITIONING THEMSELVES IN THE BED. PT HAS PAINFUL BACK AND NECK AND HAS BEEN MEDICATED PER EMAR. CALL LIGHT IS WITHIN REACH. WILL CONTINUE TO MONITOR.
--- NOTE | 2022-03-10 13:38 | NUR ---
Brief supportive visit this afternoon. Pt sitting in chair and reports 8/10 pain in his hips and legs. Offered therapeutic listening as Pt shares stories. Hospitalist has signed POLST. Obtained copy of POLST and delivered medical records. Placed original POLST in Pt's belonging bag to go home with him. Palliative Care will remain available.
--- NOTE | 2022-03-10 16:58 | NUR ---
SHIFT SUMMARY PT A&O X4 AND IN PLEASENT MOOD T/O SHIFT. PT RESTED COMFORTABLY IN BED T/O AM HOURS. UP TO CHAIR T/O MOST OF SHIFT, ENJOYED WATCHING MOVIES ON LAPTOP. PAIN MEDICATED PER EMAR, PT C/O JOINT PAIN @ BASELINE. TELE IN PLACE AFLUTTER. HPTN, OTHER VSS. CALL LIGHT W/IN REACH. FLUID RESTRICT 1500.
--- NOTE | 2022-03-10 22:29 | NUR ---
DAY RN STS PT TOLD HER HE HAS NOT SLEPT WELL AND NEEDS MEDICATION. JUAN CAGE GOT ORDER FOR HIM TO HAVE TRAZADONE FOR BEDTIME. I HAVE ASKED PT SEVERAL TIMES IF HE WOULD LIKE HIS SLEEPING MEDICATION TO WHICH HE REPLIES "LATER".
--- NOTE | 2022-03-11 04:16 | NUR ---
SHIFT SUMMARY NO ACUTE CHANGE TO PT CONDITION. PT CONTINUES TO HAVE BACK PAIN, MEDICATED PER EMAR. PT SLEPT BETTER TONIGHT, EVEN THOUGH HE NEVER DID TAKE HIS SLEEPING MEDICATIONS, ALWAYS SAYING "LATER". PT WANTING TO BE DISCHARGED. CALL LIGHT WITHIN HIS REACH. WILL CONTINUE TO MONITOR.
--- NOTE | 2022-03-11 13:20 | NUR ---
Pt resting in chair upon arrival. Pt expressing frustration stating "I didn'nt know that my soup would be consider in my fluid restriction". Continued therapeutic listening and validated concerns. Discussed Pt's wishes for CPR. Pt states "I'm not ready for comfort care". Educated wishes for CPR are separate from wishes for medical treatment and comfort care. Attempted to educate on life sustaing treatments and risks of CPR. Pt struggles with staying on topic and discusses other things. Pt needs constant redirection. Pt appears to have poor insight and understanding. Pt wishes are for Full Code. Spoke with Primary RN Dahiana and discussed case. Palliative Care will remain available.
[2022-03-11] MEDS ORDERED: ELIQUIS5 M2 PO (15:19)
[2022-03-11] MEDS ORDERED: CARV25 PO (15:20)
[2022-03-11] MEDS ORDERED: TRAZ50 PO (15:21)
[2022-03-11] MEDS ORDERED: ACET325 PO (15:22)
== END 2022-03-11 16:55 | disposition home health service (06) | DRG 291 ==
LOC: ER 09:10 → ICUE 09:11 → ER 09:11 → ICUE 09:11 → PCU 09:11 → ICUE 09:12 → PCU 13:03 → ICUE 13:03 → PCU 03-06 00:36 → MEDS 03-06 21:02
PROVIDERS: Emergency Medicine; Internal Medicine; Internal Medicine Critical Care Medicine; Nurse Practitioner Acute Care; ADMIT Internal Medicine
PROC: 5A09357 Assistance with Respiratory Ventilation, Less than 24 Consecutive Hours, Continuous Positive Airway Pressure (ICD-10-PCS; principal; 2022-03-02)
DX: I11.0 Hypertensive heart disease with heart failure (principal); I50.33 Acute on chronic diastolic (congestive) heart failure; J96.21 Acute and chronic respiratory failure with hypoxia; J96.22 Acute and chronic respiratory failure with hypercapnia; G92.8 Other toxic encephalopathy; Z68.43 Body mass index [BMI] 50.0-59.9, adult; E87.2 Acidosis; I48.92 Unspecified atrial flutter; E66.2 Morbid (severe) obesity with alveolar hypoventilation; T83.83XA Hemorrhage due to genitourinary prosthetic devices, implants and grafts, initial encounter; N17.9 Acute kidney failure, unspecified; Z20.822 Contact with and (suspected) exposure to COVID-19; I67.9 Cerebrovascular disease, unspecified; I50.810 Right heart failure, unspecified; E11.9 Type 2 diabetes mellitus without complications; R31.9 Hematuria, unspecified; F42.9 Obsessive-compulsive disorder, unspecified; M19.90 Unspecified osteoarthritis, unspecified site; I27.20 Pulmonary hypertension, unspecified; F41.9 Anxiety disorder, unspecified; I48.91 Unspecified atrial fibrillation; I25.2 Old myocardial infarction; F17.290 Nicotine dependence, other tobacco product, uncomplicated; Z79.899 Other long term (current) drug therapy; Z79.4 Long term (current) use of insulin; Z79.82 Long term (current) use of aspirin; Z91.19 Patient's noncompliance with other medical treatment and regimen; Y84.6 Urinary catheterization as the cause of abnormal reaction of the patient, or of later complication, without mention of misadventure at the time of the procedure
CPT/HCPCS: 0241U; 36415; 36416; 36600; 51702; 70450; 71045; 80048; 80053; 80069; 81001; 82803; 82947; 83735; 83880; 84145; 84484; 85025; 85027; 93005; 93010; 94640; 94660; 94664; 94760; 94762; 96374; 97110; 97162; 97166; 97530; 97535; 99285-25; A9270; C8929; J1650; J1815; J1940; Q9957

== ENCOUNTER → 2022-03-29 | Outpatient (CLI) | payer OTHER ==
[~2022-03-29] MED LIST changes: +ACET325 PO; +ASPI81CH PO; +CELE100 PO; +ELIQUIS5 M2 PO; +TRAZ50 PO
[2022-03-29 17:33] LABS: BASOPHILS ABSOLUTE AUTO 0.03 K/mm3 (0.00-0.23); BASOPHILS PERCENT AUTO 1 % (0-2); EOSINOPHILS ABSOLUTE AUTO 0.11 K/mm3 (0.00-0.68); EOSINOPHILS PERCENT AUTO 2 % (0-6); Hemoglobin 11.8 g/dL (13.5-17.5); IMMATURE GRAN ABSOLUTE AUTO 0.02 K/mm3 (0.00-0.10); IMMATURE GRAN PERCENT AUTO 0 % (0-1); LYMPHOCYTES ABSOLUTE AUTO 0.99 K/mm3 (0.84-5.20); LYMPHOCYTES PERCENT AUTO 15 % (21-46); MONOCYTES ABSOLUTE AUTO 0.41 K/mm3 (0.16-1.47); MONOCYTES PERCENT AUTO 6 % (4-13); Mean Corpuscular HGB 29.6 pg (26.0-34.0); Mean Corpuscular HGB Conc 30.3 g/dL (31.5-36.5); Mean Corpuscular Volume 98 fL (80-100); Mean Platelet Volume 10.4 fL (9.1-12.4); NEUTROPHILS ABSOLUTE AUTO 5.02 K/mm3 (1.96-9.15); NEUTROPHILS PERCENT AUTO 76 % (41-73); Platelet Count 179 K/mm3 (150-400); RDW Standard Deviation 54.3 fL (35.1-46.3); Red Blood Cell Count 3.99 M/mm3 (4.30-5.90); White Blood Cell Count 6.58 K/mm3 (4.00-11.30)
== END ==
LOC: LAB SHORT 15:29
PROVIDERS: Nurse Practitioner Family
DX: I10 Essential (primary) hypertension (principal); R04.0 Epistaxis
CPT/HCPCS: 85025

== ENCOUNTER 2022-04-05 14:32 | Inpatient (IN) | payer OTHER ==
[~2022-04-05] VITALS: Ht 177.8 cm; Wt 174.0 kg
[2022-04-05 16:58] LABS: BASOPHILS ABSOLUTE AUTO 0.03 K/mm3 (0.00-0.23); BASOPHILS PERCENT AUTO 0 % (0-2); EOSINOPHILS ABSOLUTE AUTO 0.08 K/mm3 (0.00-0.68); EOSINOPHILS PERCENT AUTO 1 % (0-6); Hematocrit 38.4 % (37.0-53.0); Hemoglobin 11.8 g/dL (13.5-17.5); IMMATURE GRAN ABSOLUTE AUTO 0.03 K/mm3 (0.00-0.10); IMMATURE GRAN PERCENT AUTO 0 % (0-1); LYMPHOCYTES PERCENT AUTO 12 % (21-46); MONOCYTES PERCENT AUTO 7 % (4-13); Mean Corpuscular HGB 29.8 pg (26.0-34.0); Mean Corpuscular HGB Conc 30.7 g/dL (31.5-36.5); Mean Corpuscular Volume 97 fL (80-100); Mean Platelet Volume 10.7 fL (9.1-12.4); NEUTROPHILS ABSOLUTE AUTO 5.96 K/mm3 (1.96-9.15); NEUTROPHILS PERCENT AUTO 79 % (41-73); Platelet Count 167 K/mm3 (150-400); RDW Coefficient Variation 14.9 % (11.7-14.2); RDW Standard Deviation 53.1 fL (35.1-46.3); Red Blood Cell Count 3.96 M/mm3 (4.30-5.90)
[2022-04-05 17:06] LABS: Anion Gap 1 mmol/L (6-16); Blood Urea Nitrogen 20 mg/dL (8-24); Bun/Creatinine Ratio 29.8 (12.0-20.0); CO2, Blood 35 mmol/L (21-32); Calcium, Blood 8.9 mg/dL (8.5-10.1); Chloride, Blood 104 mmol/L (98-108); Creatinine, Blood 0.67 mg/dL (0.60-1.20); Glomerular Filtration Rate >60 (60-); Glucose, Blood 165 mg/dL (70-99); Potassium, Blood 3.9 mmol/L (3.5-5.5); Sodium, Blood 140 mmol/L (136-145)
[2022-04-05] MEDS ORDERED: METF500 PO (17:56)
[2022-04-05] MEDS ORDERED: POTA10T PO (17:57)
[2022-04-05 19:18] LABS: Source, Urine Clean Catch
[2022-04-05 19:47] LABS: Appearance, Urine Turbid (Clear); Bilirubin, Urine Neg (Neg); Blood, Urine 5+ (Neg); Color, Urine Amber (P-Yellow); Glucose Qualitative, Urine Neg (Neg); Ketones, Urine Neg (Neg); Leukocyte Esterase, Urine 3+ (Neg); Nitrite, Urine Pos (Neg); Protein, Urine 3+ (Neg); Specific Gravity, Urine 1.015 (1.003-1.022); Urobilinogen, Urine NORM (Normal); pH, Urine 6.5 (5.0-8.0)
[2022-04-05 20:17] LABS: Bacteria Many /hpf; Red Blood Cells, Urine TNTC /hpf (0-2); Squamous Epithelial Cells Few /hpf (Few); White Blood Cells, Urine TNTC /hpf (0-5)
[2022-04-05 20:18] LABS: Mucus Heavy (0-Heavy)
[2022-04-05 20:19] LABS: Fat Droplets Many /lpf
--- NOTE | 2022-04-06 04:55 | NUR ---
PT A & 0X4. V/S WNL. O2 @ 4LPM VIA N/C. BASELINE 3LPM AT HOME. SOB AT REST/EXERTION NOTED. PT PIVOT-TRANSFERRED TO BED FROM STRETCHER. CHAIRFAST, 2-ASSIST. PT CONTINENT OF BOWEL. CHAVARRIA CATHETER IN SITU AND DRAINING A GOOD AMOUNT OF NILES URINE. NO BM THIS SHIFT. ACCUCHECKS AC & HS. ADA DIET. PATIENT REPORTED HAVING KNEE PAIN BILAT. PRN TYLENOL GIVEN FOR PAIN PER EMAR. PT DENIED C/P. TELY: ATRIAL FLUTTER WITH PVC'S PER TELY TECH. IV TO L) HAND FLUSHED W/O DIFFICULTY. WILL CONTINUE TO MONITOR.
[2022-04-06 05:38] LABS: BASOPHILS ABSOLUTE AUTO 0.03 K/mm3 (0.00-0.23); BASOPHILS PERCENT AUTO 0 % (0-2); EOSINOPHILS ABSOLUTE AUTO 0.08 K/mm3 (0.00-0.68); EOSINOPHILS PERCENT AUTO 1 % (0-6); Hematocrit 39.2 % (37.0-53.0); Hemoglobin 11.5 g/dL (13.5-17.5); IMMATURE GRAN ABSOLUTE AUTO 0.04 K/mm3 (0.00-0.10); IMMATURE GRAN PERCENT AUTO 0 % (0-1); LYMPHOCYTES ABSOLUTE AUTO 1.17 K/mm3 (0.84-5.20); LYMPHOCYTES PERCENT AUTO 12 % (21-46); MONOCYTES ABSOLUTE AUTO 0.69 K/mm3 (0.16-1.47); MONOCYTES PERCENT AUTO 7 % (4-13); Mean Corpuscular HGB 28.8 pg (26.0-34.0); Mean Corpuscular HGB Conc 29.3 g/dL (31.5-36.5); Mean Corpuscular Volume 98 fL (80-100); Mean Platelet Volume 10.8 fL (9.1-12.4); NEUTROPHILS ABSOLUTE AUTO 7.75 K/mm3 (1.96-9.15); NEUTROPHILS PERCENT AUTO 79 % (41-73); Platelet Count 165 K/mm3 (150-400); RDW Standard Deviation 54.5 fL (35.1-46.3); White Blood Cell Count 9.76 K/mm3 (4.00-11.30)
[2022-04-06 05:55] LABS: Alanine Aminotransfer (ALT/SGP 25 U/L (12-78); Albumin, Blood 3.3 g/dL (3.4-5.0); Albumin/Globulin Ratio 0.8 (0.8-1.8); Alk Phos 100 U/L (50-136); Anion Gap 3 mmol/L (6-16); Aspartate Aminotrans (AST/SGOT 12 U/L (12-37); Bilirubin, Total 0.5 mg/dL (0.1-1.0); Blood Urea Nitrogen 16 mg/dL (8-24); Bun/Creatinine Ratio 25.7 (12.0-20.0); CO2, Blood 36 mmol/L (21-32); Calcium, Blood 9.1 mg/dL (8.5-10.1); Chloride, Blood 103 mmol/L (98-108); Creatinine, Blood 0.62 mg/dL (0.60-1.20); Globulin, Blood 3.9 g/dL (2.2-4.0); Glomerular Filtration Rate >60 (60-); Glucose, Blood 160 mg/dL (70-99); Potassium, Blood 3.8 mmol/L (3.5-5.5); Sodium, Blood 142 mmol/L (136-145); Total Protein, Blood 7.2 g/dL (6.4-8.2)
--- NOTE | 2022-04-06 06:17 | NUR ---
REPORT RECEIVED BY PAULINE WHITT NURSE.AT 2100, PT ADMITTED VIA STRETCHER, ON O2 @ 4LPM VIA N/C. SOB AT REST NOTED. PT A & OX4.
--- NOTE | 2022-04-06 18:18 | NUR ---
SHIFT SUMMARY PATIENT IS ALERT AND ORIENTED X4. PATIENT HAS HAD NO ACUTE EVENTS THIS SHIFT. VITAL SIGNS REVIEWED. PATIENT IS ON 4L CURRENTLY AND IS 3L AT BASELINE. PATIENT HAS A CHAVARRIA AND IS PATENT AND DRAINING TO GRAVITY. PATIENT HAS NO COMPLAINTS OF PAIN, NAUSEA OR VOMITTING. PATIENT HAS COMPLAINED OF SOB, CALLED RT FOR TREATMENT WHICH PATIENT STATED HELPED. PATIENT IS ON TELE AND HAS BEEN NSR WITH PVCS, NO REPORTABLE INCIDENTS VIA MONITOR. BED IN LOCKED AND LOWEST POSITION. CALL LIGHT IN PLACE. WILL MONITOR UNTIL SHIFT CHANGE.
--- NOTE | 2022-04-07 05:01 | NUR ---
PT A & OX4. V/S WNL. PT ON O2 AT 4LPM VIA N/C. PT C/O OF LOW BACK/TAILBONE PAIN TWICE. PRN TYLENOL GIVEN FOR PAIN PER EMAR. 1500 FLUID RESTRICTION. URINE OUTPUT:1250 ML. PERICARE/CHAVARRIA CATHETER CARE PROVIDED Q4HRS. REPOSITION Q2HRS. ADA DIET. HS BS:180. SCHEDULED INSULIN GIVEN PER EMAR. NO SLIDING INSULIN COVERAGE REQUIRED. WILL CONTINUE TO MONITOR.
[2022-04-07 05:07] LABS: Hematocrit 38.2 % (37.0-53.0); Hemoglobin 11.4 g/dL (13.5-17.5); Mean Corpuscular HGB 29.2 pg (26.0-34.0); Mean Corpuscular HGB Conc 29.8 g/dL (31.5-36.5); Mean Corpuscular Volume 98 fL (80-100); Mean Platelet Volume 10.6 fL (9.1-12.4); Platelet Count 166 K/mm3 (150-400); RDW Coefficient Variation 15.2 % (11.7-14.2); RDW Standard Deviation 55.3 fL (35.1-46.3); White Blood Cell Count 8.93 K/mm3 (4.00-11.30)
[2022-04-07 05:35] LABS: Alanine Aminotransfer (ALT/SGP 22 U/L (12-78); Albumin, Blood 3.4 g/dL (3.4-5.0); Albumin/Globulin Ratio 0.8 (0.8-1.8); Alk Phos 97 U/L (50-136); Anion Gap 4 mmol/L (6-16); Aspartate Aminotrans (AST/SGOT 12 U/L (12-37); Bilirubin, Total 0.5 mg/dL (0.1-1.0); Blood Urea Nitrogen 17 mg/dL (8-24); Bun/Creatinine Ratio 23.8 (12.0-20.0); CO2, Blood 34 mmol/L (21-32); Calcium, Blood 9.3 mg/dL (8.5-10.1); Chloride, Blood 103 mmol/L (98-108); Creatinine, Blood 0.71 mg/dL (0.60-1.20); Glomerular Filtration Rate >60 (60-); Glucose, Blood 171 mg/dL (70-99); Magnesium, Blood 2.7 mg/dL (1.6-2.4); Potassium, Blood 3.9 mmol/L (3.5-5.5); Sodium, Blood 141 mmol/L (136-145); Total Protein, Blood 7.4 g/dL (6.4-8.2)
--- NOTE | 2022-04-07 17:49 | NUR ---
SHIFT SUMMARY PATIENT IS ALERT AND ORIENTED X3-4. PATIENT HAS HAD REDUCED SCROTAL SWELLING PER THIS RN AND DR TODAY. PATIENT PULLED OUT HIS IV AND TELE MONITOR OFF THIS MORNING DUE TO ANXIETY. PATIENT HAS HAD NO OTHER INCIDENTS OF ANXIETY. PATIENT HAS HAD NO ACUTE EVENTS THIS SHIFT. VITAL SIGNS REVIEWED. IV WAS REPLACED AND CHAVARRIA CATHETER IS PATENT AND DRAINING TO GRAVITY. WILL MONITOR UNTIL SHIFT CHANGE.
--- NOTE | 2022-04-07 23:25 | NUR ---
NURSE NOTE: SABI COLBY NOTIFIED HR BRADYCARDIA SUSTAINING 40'S BPM DROPPING DOWN TO 38 BPM WHEN SLEEPING. PATIENT HAS SLEEP APNEA, NON COMPLIANT WITH CPAP. GAVE NO ORDER FOR INTERVENTIONS AT THIS TIME, CONTINUE TO MONITOR HR, NOTIFY IF SUSTAINING IN 30'S BPM OR IF PATIENT BECOMES SYMPTOMATIC. MD REQUEST TO ENCOURAGE PATIENT TO WEAR CPAP WHILE IN THE HOSPITAL, MD APPROVED TO PLACE CPAP ORDERS IF PATIENT IS WILLING TO COMPLY.
[2022-04-08 04:31] LABS: Mean Corpuscular HGB 29.5 pg (26.0-34.0); Mean Corpuscular Volume 98 fL (80-100); Mean Platelet Volume 10.6 fL (9.1-12.4); Platelet Count 172 K/mm3 (150-400); RDW Standard Deviation 54.4 fL (35.1-46.3); Red Blood Cell Count 4.07 M/mm3 (4.30-5.90); White Blood Cell Count 8.87 K/mm3 (4.00-11.30)
[2022-04-08 04:54] LABS: Albumin, Blood 3.4 g/dL (3.4-5.0); Albumin/Globulin Ratio 0.8 (0.8-1.8); Bilirubin, Total 0.5 mg/dL (0.1-1.0); Bun/Creatinine Ratio 28.8 (12.0-20.0); Calcium, Blood 9.4 mg/dL (8.5-10.1); Creatinine, Blood 0.73 mg/dL (0.60-1.20); Magnesium, Blood 2.9 mg/dL (1.6-2.4); Total Protein, Blood 7.4 g/dL (6.4-8.2)
[2022-04-08 05:38] LABS: Base Excess Venous 8.2 mmol/L; Bicarbonate Venous 28.8 mmol/L (24.0-30.0); PCO2 Venous 75.7 mmHg (38-42); PO2 Venous 32.6 mmHg (38-42); pH Blood Venous 7.27 (7.34-7.37)
--- NOTE | 2022-04-08 05:57 | NUR ---
SHIFT SUMMARY: PATIENT HAVING INCREASED CONFUSION THROUGHOUT THE NIGHT, WAKING UP DISORIENTED TO TIME, PLACE AND SITUATION. PATIENT FREQUENTLY SELF REMOVING PULSE OXIMETRY, CPAP/BIPAP MASK AND PULLING CHAVARRIA, EPISODE OF COMBATIVENESS. PATIENT WAS ABLE TO BE REORIENTED AND CALMED DOWN QUICKLY, CONTINUED REORIENTATION THROUGHOUT THE SHIFT. MD NOTIFIED VBG OBTAINED WITH CRITICAL PH 7.27 AND CO2 75.7- RESPIRATORY THERAPIST CONTACTED AT MD REQUEST TO PLACE ON BIPAP AND ADJUST PRESSURES ACCORDINGLY- WILL CONTACT MD IF PATIENT IS NON COMPLIANT OR IF PRESSURES DO NOT MAINTAIN O2 REQUIREMENTS FOR POSSIBLE TRANSFER TO PCU. BED ALARM ACTIVATED, BED IN LOW POSITION CALL CARRILLO IN REACH.
--- NOTE | 2022-04-08 09:58 | NUR ---
at 0950 this nurse in TO ASSESS AND ADMINISTER MEDICATIONS. WHEN NURSE WOKE PATIENT HE PULLED OFF HIS BI-PAP MASK. PT VERY AGGITATED AND CONFUSED. O2 SAT DROPPED TO 82. THIS NURSE CALLED CHARGE NURSE SELAM WHO CAME IN ROOM TO HELP CALM PATIENT AND APPLY NASAL CANNULA THOUGH PT WAS REFUSING. PT ON 5L AT THIS TIME SATING BETEEN 84-90. HEART RATE THIS SHIFT WHILE PATIENT WAS SLEEPING WAS DIPPING INTO 30'S. 57 AT THIS TIME PER OFFICE TECHNOLOGY PROFESSOR, A FLUTTER. DR ORTIZ CALLED AT 0958, NO ANSWER, LEFT MESSAGE TO RETURN CALL.
[2022-04-08 10:05] LABS: Base Excess Venous 6.8 mmol/L; Bicarbonate Venous 29.4 mmol/L (24.0-30.0); PCO2 Venous 53.1 mmHg (38-42); PO2 Venous 90.3 mmHg (38-42); pH Blood Venous 7.39 (7.34-7.37)
--- NOTE | 2022-04-08 10:19 | NUR ---
PT MORE AWAKE NOW. AXO X4, PLEASANT AND COOPERATIVE WITH CARE. DIURETICS GIVEN PER EMAR, THOUGH HR CONTINUES IN THE 50'S. PT COMPLAINS OF "HAVING TO PEE," BLADDER SCAN REVEALS 702 ML RETAINED. PT STATED HE THINKS THE CATHETER HAS BEED DISPLACED "INTO THE URETHRA" AND REQUESTS A NEW CHAVARRIA TO BE PLACED. PT BREAKFAST HELD FOR DROWSINESS. INSULINE GLARGINE HELD UNTIL THIS NURSE CAN SPEAK WITH DR ORTIZ.
--- NOTE | 2022-04-08 12:56 | NUR ---
A FLUTTER AT 39 PER GENERAL CONTRACTOR AT THIS TIME. DIPPED TO 25 WHILE THIS NURSE WAS AT LUNCH PER YUDITH JCAKSON RN. PT REPORTS THAT HE "CAN'T KEEP MY EYES OPEN." PT SITTING UP IN RECINER, REFUSES RECLINE POSITION. CALL LIGHT WITHIN REACH/
--- NOTE | 2022-04-08 14:03 | NUR ---
PT'S SPOUSE, KANWAL NOTIFIED AT 1400 THAT HE IS TRANSFER TO ICU 16. PT'S SPOUSE AGREEABLE AND STATES THAT SHE WILL BE IN TO VISIT TOMORROW.
[2022-04-08 14:09] LABS: PCO2 Arterial 68.2 mmHg (35-45); PO2 Arterial 79.6 mmHg (80-100); pH Blood Arterial 7.31 (7.35-7.45)
--- NOTE | 2022-04-08 14:48 | NUR ---
Call placed to Dr Mejia to discuss plan of care. At time of arrival to ICU, pt is A&O x 4. Able to transfer from recliner to bed with 2 person mod assist with gait belt and walker. Afib with variable heart rate 35-45. Provider states she would like patient on BiPAP. RT notified.
--- NOTE | 2022-04-08 15:12 | NUR ---
Pt on M Series BiPAP. Settings changed from 18/10 to 22/12. 4 L Bleed in.
--- NOTE | 2022-04-08 15:40 | NUR ---
TRANSFER SUMMARY DR ORTIZ AT BEDSIDE AT 1340 WHO AFTER UPDATES FROM THIS NURSE GAVE VERBAL ORDERS FOR PCU TRANSFER AND ABG ORDERS. RT NOTIFIED OF THE ABG ORDER AND IN ROOM TO DRAW AT 1400. CHARGE NURSE NOTIFIED OF TRANSFER ORDER IMMEDIATELY. REPORT GIVEN TO VARINDER SALGADO RN. PT TRANSFERRED TO ICU -16. NOTIFED PRIOR TO TRANSFER, SEE PRIOR NOTE. PT LEFT ROOM VIA RECLINER IN LAID BACK POSITION AT 1414 WITH THIS NURSE AND PROCUREMENT COST COORDINATOR X2 PRESENT WITH BIPAP ON. PT PIVOT TRANSFER TO BED IN ICU SHORTLY THEREAFTER. VARINDER SALGADO RN TO ASSUME CARE AT THAT TIME.
[2022-04-08 18:13] LABS: Source, Urine Foley catheter
--- NOTE | 2022-04-08 18:19 | NUR ---
SUMMARY Assumed care of pt upon arrival to ICU 16 from medical floor. Pt transferred for PCU level of care with symptomatic hypercapnea. Pt arrived in bariatric recliner. Pt stood with 2 staff assist, gait belt and walker to transfer to ICU bed. On arrival, pt A&O x4. Answers questions, follows commands, verbalizes needs. Pleasant and cooperative with care. Pt arrived with M series BiPAP. At this time, pt is on AVAPS mode on M Series BiPAP. Atrial flutter per monitor with variable conduction. Rate 45-55. BP high, but responsive to hydralyzine and nifedipine. Reece catheter changed out. Previous catheter was 12 FR, leaking, and pt did not feel it was working properly. Replaced with 18 FR.
[2022-04-08 18:22] LABS: Appearance, Urine Hazy (Clear); Bilirubin, Urine Neg (Neg); Blood, Urine 5+ (Neg); Glucose Qualitative, Urine Neg (Neg); Ketones, Urine Neg (Neg); Leukocyte Esterase, Urine 1+ (Neg); Nitrite, Urine Neg (Neg); Protein, Urine Neg (Neg); Specific Gravity, Urine 1.015 (1.003-1.022); Urobilinogen, Urine NORM (Normal)
[2022-04-08 18:38] LABS: Color, Urine Pale Yellow (P-Yellow)
[2022-04-08 18:40] LABS: Amorphous Mod (0-Heavy); Bacteria Mod /hpf; Red Blood Cells, Urine TNTC /hpf (0-2); Squamous Epithelial Cells Few /hpf (Few); White Blood Cells, Urine 0-2 /hpf (0-5)
--- NOTE | 2022-04-08 20:00 | NUR ---
ASSUMED CARE OF PT AT 1915. REPORT RECEIVED AT BEDSIDE. PT ALERT AND ORIENTED. PLEASANT AND COOPERATIVE WITH CARE AND ASSESSMENT. DENIES COMPLAINTS AT THIS TIME EXCEPT FOR FEELING COLD. BLANKETS PROVIDED. PT WEARNIG BIPAP UPON ENTRY TO ROOM. DID CHANGE PT TO NASAL CANNULA 3 L/M DURING ASSESSMENT AND ORAL CARE. PT TOLERATES THIS WELL WITH SATURATIONS 94-95 PERCENT. PLAN IS TO HAVE BIPAP BACK IN PLACE AFTER PM MEDICATIONS. PT IN AGREEMENT. PT ABLE TO DRINK WATER WITHOUT COUGH. WILL REVIEW CHART AND PLAN OF CARE FOR THIS PT.
--- NOTE | 2022-04-08 22:18 | NUR ---
PT CURRENTLY BACK TO BIPAP. TOLERATING THIS WELL. WILL CONTINUE TO MONITOR PT.
[2022-04-09 03:34] LABS: Hematocrit 38.3 % (37.0-53.0); Hemoglobin 11.5 g/dL (13.5-17.5); Mean Corpuscular Volume 97 fL (80-100); Mean Platelet Volume 10.6 fL (9.1-12.4); Platelet Count 179 K/mm3 (150-400); RDW Coefficient Variation 15.1 % (11.7-14.2); RDW Standard Deviation 53.9 fL (35.1-46.3); Red Blood Cell Count 3.96 M/mm3 (4.30-5.90); White Blood Cell Count 8.08 K/mm3 (4.00-11.30)
[2022-04-09 04:03] LABS: Albumin, Blood 3.2 g/dL (3.4-5.0); Albumin/Globulin Ratio 0.9 (0.8-1.8); Bilirubin, Total 0.4 mg/dL (0.1-1.0); Bun/Creatinine Ratio 26.9 (12.0-20.0); Calcium, Blood 9.1 mg/dL (8.5-10.1); Creatinine, Blood 0.74 mg/dL (0.60-1.20); Globulin, Blood 3.7 g/dL (2.2-4.0); Potassium, Blood 3.6 mmol/L (3.5-5.5); Total Protein, Blood 6.9 g/dL (6.4-8.2)
--- NOTE | 2022-04-09 06:02 | NUR ---
PT HAS DECLINED ASSIST WITH TURNS IN BED. HAVE ENCOURAGED PT TO MOVE ABOUT. HAD GONE APPROX 4 HOURS WITHOUT WEARING HIS BIPAP. DID AGREE TO PUT IT BACK ON AND HAS BEEN WEARING THIS FOR APPROX 2 HOURS THIS MORNING. PT HAS HAD GOOD URINARY OUTPUT. NO BLEEDING NOTED AT MEATUS. NO HEMATURIA NOTED. WILL CONTINUE TO MONITOR PT, AND WILL REPORT OFF TO ONCOMING RN.
--- NOTE | 2022-04-09 08:08 | NUR ---
PATIENT SLEEPING, HAS ONLY SLEPT FOR 2 HOURS, WAKES TO TOUCH AND BACK TO SLEEP, BIPAP ON SATS 96%, CALL LIGHT WITH IN REACH, WCTM
--- NOTE | 2022-04-09 08:56 | NUR ---
PATIENT ACCIDENTALY PULLED RIGHT HAND IV OUT
--- NOTE | 2022-04-09 11:48 | NUR ---
BS 121, NO CVOERAGE REQUIRED, VISITING AT BEDSIDE, CALL LIGHT WITH IN REACH
--- NOTE | 2022-04-09 15:14 | NUR ---
PATIENT REQUEST BIPAP BACK ON, RESTING/SLEEPING NOW, NO SIGNS OF DISTRESS, CALL LIGHT WITH IN REACH, WCTM
--- NOTE | 2022-04-09 18:02 | NUR ---
patient alert and oriented, confused and forgetful at times. multiple needs and questions, patient forgets in 30 minutes and asks the same questions. stiff to any movement. bipap on when sleeping, 4liters o2 via nc while awake. patient did not desat today 91% now. ate all meals, fluids for the day 900 ml. sbp 150-180s, heart rate aflutter 50-80, medicated with scheduled nicardipine po. taking lasix, voided 1500 ml +. new iv site to the right ac, bs 121 and 124. call light with in reach, will relay to pm rn
--- NOTE | 2022-04-09 21:43 | NUR ---
ASSUMED CARE OF PT AT 1915. REPORT RECEIVED. PT PRESENTS IN BED. ALERT AND ORIENTED. PLEASANT AND COOPERATIVE WITH CARE AND ASSESSMENT. PT HAS MADE FREQUENT USE OF CALL LIGHT SYSTEM SINCE CHANGE OF SHIFT. PT HAS MULTIPLE SMALL TASKS HE WANTS DONE. DID ENCOURAGE PT TO MAKE A LIST OF ALL THE TASKS HE WANTS AND TO PRESENT THEM WHEN RN ROUNDS. PT AGREES TO THIS PLAN AND FEELS THIS WILL HELP HIM. DID CHANGE OUT OXIMETER PROBE AT PT'S REQUEST. CHAPSTICK PROVIDED, AND COFFEE AND WARM BLANKETS BROUGHT TO PT. DID HAVE PT DO HIS OWN ORAL CARE WITH ORAL KIT. HAVE DONE TEACHING ON IMPORTANCE OF ORAL CARE IN REGARDS TO WEARING BIPAP. HAD REQUESTED BIPAP TO BE ON AND WITHIN APPROX 20 MINUTES REMOVED MASK. HAVE PLACED NASAL CANNULA WITHIN REACH OF PT SO WHEN HE REMOVES BIPAP HE CAN PLACE HIS OXYGEN BACK IN PLACE. WILL REVIEW CHART AND PLAN OF CARE. DID MEDICATE PT WITH HYDRALAZINE FOR SBP > 160. THIS HAS SHOWN AFFECTIVE. SEE VS FLOWSHEET FOR DETAILS.
--- NOTE | 2022-04-09 23:18 | NUR ---
PT WILL ONLY WEAR HIS BIPAP FOR APPROX 20 MINUTES BEFORE ASKING TO HAVE IT REMOVED. PT STATES HE IS NOT TOLERATING THIS AND THAT IT BLOWS COLD AIR ON HIM. PT ON NASAL CANNULA. MAINTAINS SATURATIONS > 90 PERCENT. RESPIRATORY CARE AWARE OF PT NOT WEARING BIPAP.
--- NOTE | 2022-04-10 03:23 | NUR ---
PT STATES THAT HE HAD HURT HIS KNEE IN A FALL AT HOME WHEN HE WAS DISCHARGED FROM THE HOSPITAL. HE STATES THAT THE PAIN OF HIS KNEE (RIGHT) WAS 10/10 WHICH PT STATES IS THE WORST PAIN HE HAS EVER HAD, AND HAS REQUESTED TYLENOL. 650 MG TYLENOL PROVIDED. NO FURTHER COMPLAINTS. PT HAS NO MOANING, OR GRIMACING WITH PAIN OF KNEE. PT HAS YET TO SLEEP THIS NIGHT. HAS BEEN WATCHING TELEVISION.
[2022-04-10 04:41] LABS: Hematocrit 38.8 % (37.0-53.0); Hemoglobin 11.8 g/dL (13.5-17.5); Mean Corpuscular HGB 29.1 pg (26.0-34.0); Mean Corpuscular HGB Conc 30.4 g/dL (31.5-36.5); Mean Corpuscular Volume 96 fL (80-100); Platelet Count 195 K/mm3 (150-400); RDW Coefficient Variation 15.3 % (11.7-14.2); RDW Standard Deviation 54.1 fL (35.1-46.3); Red Blood Cell Count 4.05 M/mm3 (4.30-5.90); White Blood Cell Count 8.52 K/mm3 (4.00-11.30)
[2022-04-10 05:03] LABS: Albumin, Blood 3.2 g/dL (3.4-5.0); Albumin/Globulin Ratio 0.8 (0.8-1.8); Bilirubin, Total 0.5 mg/dL (0.1-1.0); Bun/Creatinine Ratio 28.5 (12.0-20.0); Calcium, Blood 9.1 mg/dL (8.5-10.1); Creatinine, Blood 0.77 mg/dL (0.60-1.20); Globulin, Blood 3.8 g/dL (2.2-4.0); Potassium, Blood 3.7 mmol/L (3.5-5.5)
--- NOTE | 2022-04-10 06:39 | NUR ---
PT HAS NOT BEEN ABLE TO SLEEP THIS NIGHT. PT STATES THAT HE HAS NOT FELT SLEEPY. DID SLEEP DURING THE PREVIOUS DAY. HAS COMPLETED 1.5 LITER FLUID RESTRICTION. EDUCATION TO PT ON RESTRICTION AND RATIONALE. PT VOICES UNDERSTANDING. NO FURTHER COMPLAINTS OF KNEE PAIN. PATTERN VAULT CLERK AND PALLIATIVE CARE CONSULT HAS BEEN DONE SECONDARY TO PT'S READMISSION TO THE HOSPITAL, AND NEED FOR ADDITIONAL CARE IF HE IS TO RETURN HOME. ONLY HELP THAT HE HAS CURRENTLY IS HIS . DOES SAY THAT WHEN HE FALLS HE HAS THE FIRE DEPARTMENT COME TO HOME TO PICK HIM UP OFF THE FLOOR. PT HAS NOT WORN HIS BIPAP MUCH THIS NIGHT. LONGEST HE HAS LEFT BIPAP MASK IN PLACE IS 30 MINUTES. HAVE DISCUSSED WITH PT THAT IDEAL LENGTH OF TIME WOULD BE AT LEAST 4 HOURS. WILL CONTINUE TO MONITOR PT, AND WILL REPORT OFF TO ONCOMING RN.
--- NOTE | 2022-04-10 15:49 | NUR ---
WORKED WITH PT, REPOSITIONED SELF IN BED, STOOD AT EDGE OF BED FOR 5 SECONDS
--- NOTE | 2022-04-10 17:58 | NUR ---
PATIENT ALERT AND ORIENTED, CONFUSED AND FORGETFUL AT TIMES, IS EMOTIONALLY LAIBLE, MOODS EASILY CHANGE. WORKED WITH PT TODAY, STOOD AT EDGE OF BED FOR 5 SECONDS, REPOSITIONED SELF IN BED. ARMS AND LEGS ELEVATED, SCROTAL SWELLING IMPROVED, SCROTAL SKIN AND CARYL LOWER LEG SKIN EXCORIATED, RED, HOT TO TOUCH. SKIN INTACT. LS DIMINSHED BASES, CLEARS CONGESTION WITH COUGH, 3 L O2 VIA NC WHILE AWAKE, BIPAP WHEN SLEEPING, SATS 90-98%. TELE AFIB/AFLUTTER, HTN, SBP 140-200, PVCS AND PAUSES AT TIMES DENIES CP, NO NV, GOOD APPETITE, FLUID RESTRICTIONS, OBESE, CHAVARRIA DRAINING DARK YELLOW URINE, ACTIVE BT. CALL LIGHT WITH IN REACH, MAKES NEEDS KNOWN, WILL RELAY TO PM RN
[2022-04-11 03:40] LABS: Hematocrit 39.7 % (37.0-53.0); Mean Corpuscular HGB 29.2 pg (26.0-34.0); Mean Corpuscular HGB Conc 30.2 g/dL (31.5-36.5); Mean Corpuscular Volume 97 fL (80-100); Mean Platelet Volume 10.7 fL (9.1-12.4); Platelet Count 207 K/mm3 (150-400); RDW Coefficient Variation 15.6 % (11.7-14.2); RDW Standard Deviation 55.5 fL (35.1-46.3); Red Blood Cell Count 4.11 M/mm3 (4.30-5.90); White Blood Cell Count 9.83 K/mm3 (4.00-11.30)
[2022-04-11 04:02] LABS: Albumin, Blood 3.3 g/dL (3.4-5.0); Albumin/Globulin Ratio 0.8 (0.8-1.8); Bilirubin, Total 0.4 mg/dL (0.1-1.0); Bun/Creatinine Ratio 28.1 (12.0-20.0); Calcium, Blood 9.2 mg/dL (8.5-10.1); Creatinine, Blood 0.75 mg/dL (0.60-1.20); Globulin, Blood 3.9 g/dL (2.2-4.0); Potassium, Blood 3.9 mmol/L (3.5-5.5); Total Protein, Blood 7.2 g/dL (6.4-8.2)
--- NOTE | 2022-04-11 06:08 | NUR ---
SHIFT SUMMERY NO ACUTE CHANGES OVERNIGHT
--- NOTE | 2022-04-11 09:54 | NUR ---
DR SCHWARTZ ROUNDED, REPORTED PATIETN NOT SLEEPING FOR 72+ HOURS, PATIENT UNABLE TO STAY AWAKE NOW, BIPAP ON, REPORTED SCROTAL AND CARYL LOWER LEG REDDNESS AND WARMTH, PATIENT RECEIVEING ROCEPHIN, WILL ADD MUCI CREAM TO PATIENT REGIMEN. PATIENT RESTING, NO DISTRESS, BIPAP ON
--- NOTE | 2022-04-11 18:42 | NUR ---
MAKES NEEDS KNOWN, AGREES TO TAKE TRAZADONE TONIGHT DUE TO PATIENT NOT SLEEPING, ALERT AND ORIENTED, FORGETFUL AND CONFUSED AT TIMES. OINTMENT TO SCROTAL SKIN AND LOWER LEG SKIN, CHANGED GREEN SHEET AND MEJÍA, PATIENT HELPED REPOSITION HIMSELF, PRUNE JUICE X2, APPLESAUCE X2. CALL LIGHT WITH IN REACH, [facility]
[2022-04-12 03:24] LABS: BASOPHILS ABSOLUTE AUTO 0.04 K/mm3 (0.00-0.23); BASOPHILS PERCENT AUTO 0 % (0-2); EOSINOPHILS ABSOLUTE AUTO 0.15 K/mm3 (0.00-0.68); EOSINOPHILS PERCENT AUTO 2 % (0-6); Hematocrit 40.2 % (37.0-53.0); Hemoglobin 12.1 g/dL (13.5-17.5); IMMATURE GRAN ABSOLUTE AUTO 0.05 K/mm3 (0.00-0.10); IMMATURE GRAN PERCENT AUTO 1 % (0-1); LYMPHOCYTES ABSOLUTE AUTO 1.04 K/mm3 (0.84-5.20); LYMPHOCYTES PERCENT AUTO 10 % (21-46); MONOCYTES ABSOLUTE AUTO 0.74 K/mm3 (0.16-1.47); MONOCYTES PERCENT AUTO 7 % (4-13); Mean Corpuscular HGB 29.7 pg (26.0-34.0); Mean Corpuscular HGB Conc 30.1 g/dL (31.5-36.5); Mean Corpuscular Volume 99 fL (80-100); Mean Platelet Volume 10.4 fL (9.1-12.4); NEUTROPHILS PERCENT AUTO 80 % (41-73); Platelet Count 206 K/mm3 (150-400); RDW Coefficient Variation 15.4 % (11.7-14.2); RDW Standard Deviation 56.1 fL (35.1-46.3); Red Blood Cell Count 4.08 M/mm3 (4.30-5.90); White Blood Cell Count 10.12 K/mm3 (4.00-11.30)
[2022-04-12 03:39] LABS: Albumin/Globulin Ratio 0.8 (0.8-1.8); Bilirubin, Total 0.4 mg/dL (0.1-1.0); Bun/Creatinine Ratio 35.5 (12.0-20.0); Calcium, Blood 8.7 mg/dL (8.5-10.1); Creatinine, Blood 0.73 mg/dL (0.60-1.20); Potassium, Blood 4.4 mmol/L (3.5-5.5)
--- NOTE | 2022-04-12 06:10 | NUR ---
SHIFT SUMMERY: PT HAS BEEN UP MOST OF THE NIGHT AND REFUSED TO WEAR HIS BIPAP. HE IS ALERT BUT INAPPROPRIATE AT TIMES. VS HAVE BEEN STABLE. HE HAS HAD NO ACUTE DISTRESS THROUGHOUT THE NIGHT AND NO ACUTE CHANGES.
--- NOTE | 2022-04-12 08:59 | NUR ---
CARE ASSUMED OF PT AT 0700. PT AWAKE WATCHING TV. PT STATES HE IS FEELING GOOD, BUT STATES HE FEELS MORE SOB THAN NORMAL. PT DOES HAVE DYSPNEA WITH SPEECH BUT IS ABLE TO TALK IN FULL SENTENCES. SATS 94% ON 6L VIA N/C. CRACKLES TO LLL, VERY DIMINISHED TO RLL. PT STATES HE ONLY HAS PAIN WHEN HE MOVES HIS LEG, DENIES PAIN AT REST. DR SCHWARTZ AT BEDSIDE NOW.
--- NOTE | 2022-04-12 11:07 | NUR ---
PT UNABLE TO STAND WITH OT AND ASSIST X2. PT GIVEN COMPLETE BED BATH AND TRANSFERED TO CHAIR USING LIFT.
--- NOTE | 2022-04-12 15:11 | NUR ---
REPORT GIVEN TO CARLA FLORES RN. PT TO BE TRANSFERED TO [facility].
--- NOTE | 2022-04-12 15:24 | NUR ---
RECEIVED HAND OFF REPORT FROM PAUL RN IN ICU. PATIENT IS 71 Y.O. MALE HE IS AO X 4 MOST OF TIME WITH PERIODIC MOMENTS OF CONFUSION. HE IS INNAPROPRIATE WITH STAFF AT TIMES AND IS NOTED TO BE INNAPROPRIATE WITH STAFF ON ARRIVAL TO MED FLOOR. PATIENT IS CAUTIONED ABOUT BEHAVIOR AND REDIRECTED BY THIS RN. HE IS AC AND HS BLOOD SUGARS. HE IS CURRENTLY ON 6 LITERS O2 WHILE AWAKE AND SHOULD BE ON BIPAP WHEN ASLEEP HOWEVER PER REPORT HAS BEEN REFUSING BIPAP AT [facility]. HE WEIGHS OVER 389 POUNDS AND IS A TOTAL LIFT PATIENT. HE ARRIVES TO UNIT ON A MEDICAL FLOOR BED. PATIENT WORKED WITH PT AND OT TODAY AND WAS UNABLE TO STAND AND PIVOT TO BEDSIDE COMMODE. PER REPORT IT WAS NOTED BY JUAN MILLER TO BE UNSAFE FOR HIM WHEN HE WAS TRYING TO STAND. PATIENT ISD NOTED TO HAVE SCROTAL SWELLING AND EDEMA WITH EXCORIATED AREAS UNDER TESTICLES AND PANUS FOLDS. HIS LUNGS ARE DIM ON THE LOWER LEFT AND HAS CRACKLES IN THE RIGHT LOWER. HE IS CURRENTLY ON A 1500 ML FLUID RESTRICTION AND HAS USED 400ML OF THAT TODAY PER PAUL DATA VISUALIZATION DEVELOPER DURING REPORT. BILATERL LOWER EXTREMITIES ARE RED SWOLLEN AND DRY SCALEY. HIS CMS IS <3 SECONDS ON LOWER EXTREMITIES AND ALSO ON UPPER EXTREMITIES. WILL CONTINUE TO MONITOR THIS PATIENT CLOSELY UNTIL REPORT AND HAND OFF TO [facility] SHIFT RN AT SHIFT CHANGE. HE IS ON AN ADA DIET AND TAKES HIS PILLS WHOLE WITH WATER.
--- NOTE | 2022-04-13 03:57 | NUR ---
SUMMARY PT C/O OF LOW BACK PAIN. PT MEDICATED PER EMAR WITH SOME RELIEF. PT RESPONDED WELL TO REPOSITIONING. PT CHAVARRIA DRAINING TO GRAVITY. PT HAS PERIODS OF CONFUSION. PT SLEPT SOME DURING NIGHT. PT DID NOT TOLERATE CPAP THIS SHIFT. PT HAS BEEN WEARING NASAL CANULA. PT CURRENTLY SLEEPING AND BREATHING EASY. CALL LIGHT IN REACH AND BED ALARM ON.
[2022-04-13 07:26] LABS: BASOPHILS ABSOLUTE AUTO 0.03 K/mm3 (0.00-0.23); BASOPHILS PERCENT AUTO 0 % (0-2); EOSINOPHILS ABSOLUTE AUTO 0.16 K/mm3 (0.00-0.68); EOSINOPHILS PERCENT AUTO 2 % (0-6); Hematocrit 38.2 % (37.0-53.0); Hemoglobin 11.5 g/dL (13.5-17.5); IMMATURE GRAN ABSOLUTE AUTO 0.05 K/mm3 (0.00-0.10); IMMATURE GRAN PERCENT AUTO 1 % (0-1); LYMPHOCYTES ABSOLUTE AUTO 1.09 K/mm3 (0.84-5.20); LYMPHOCYTES PERCENT AUTO 11 % (21-46); MONOCYTES ABSOLUTE AUTO 0.84 K/mm3 (0.16-1.47); MONOCYTES PERCENT AUTO 9 % (4-13); Mean Corpuscular HGB 29.3 pg (26.0-34.0); Mean Corpuscular HGB Conc 30.1 g/dL (31.5-36.5); Mean Corpuscular Volume 97 fL (80-100); Mean Platelet Volume 10.7 fL (9.1-12.4); NEUTROPHILS ABSOLUTE AUTO 7.63 K/mm3 (1.96-9.15); NEUTROPHILS PERCENT AUTO 78 % (41-73); Platelet Count 200 K/mm3 (150-400); RDW Coefficient Variation 15.1 % (11.7-14.2); RDW Standard Deviation 54.5 fL (35.1-46.3); Red Blood Cell Count 3.92 M/mm3 (4.30-5.90)
[2022-04-13 07:43] LABS: Albumin/Globulin Ratio 0.8 (0.8-1.8); Bilirubin, Total 0.4 mg/dL (0.1-1.0); Bun/Creatinine Ratio 43.9 (12.0-20.0); Creatinine, Blood 0.71 mg/dL (0.60-1.20); Potassium, Blood 4.6 mmol/L (3.5-5.5)
--- NOTE | 2022-04-13 16:38 | NUR ---
SHIFT SUMMARY PT IS AOX3 TODAY, IT IS IMPROVING THE MORE HE WEARS HIS BIPAP MACHINE. HIS CAME TO VISIT TODAY. WE GAVE HIM A BED BATH TODAY, USING THE LIFE. HE IS ON A FLUID RESTRICTION OF 1500ML. THE PLAN IS FOR HIM TO GO TO A SNIF. HE HAS SEVERE SCROTUM SWELLING AND BLE EDEMA. HE CANNOT STAND OR TRANSFER, HE HAS A CHAVARRIA CATHETER. HE OBEYS COMMANDS AND FOLLOWS DIRECTIONS. HE HAS POWDER TO APPLY TO HIS PANNUS AND IN HIS SCROTUM REGION. HE SHOULD BE ENCOURAGED TO USE HIS BIPAP AT NIGHT. WILL CONTINUE TO MONITOR AND ASSESS UNTIL NOC SHIFT ARRIVES.
[2022-04-14 07:46] LABS: BASOPHILS ABSOLUTE AUTO 0.03 K/mm3 (0.00-0.23); BASOPHILS PERCENT AUTO 0 % (0-2); EOSINOPHILS ABSOLUTE AUTO 0.18 K/mm3 (0.00-0.68); EOSINOPHILS PERCENT AUTO 2 % (0-6); Hematocrit 38.7 % (37.0-53.0); Hemoglobin 11.5 g/dL (13.5-17.5); IMMATURE GRAN ABSOLUTE AUTO 0.05 K/mm3 (0.00-0.10); IMMATURE GRAN PERCENT AUTO 1 % (0-1); LYMPHOCYTES PERCENT AUTO 11 % (21-46); MONOCYTES ABSOLUTE AUTO 0.75 K/mm3 (0.16-1.47); MONOCYTES PERCENT AUTO 8 % (4-13); Mean Corpuscular HGB 29.6 pg (26.0-34.0); Mean Corpuscular HGB Conc 29.7 g/dL (31.5-36.5); Mean Corpuscular Volume 100 fL (80-100); Mean Platelet Volume 10.6 fL (9.1-12.4); NEUTROPHILS PERCENT AUTO 78 % (41-73); Platelet Count 219 K/mm3 (150-400); RDW Coefficient Variation 15.2 % (11.7-14.2); RDW Standard Deviation 56.3 fL (35.1-46.3); Red Blood Cell Count 3.88 M/mm3 (4.30-5.90); White Blood Cell Count 9.71 K/mm3 (4.00-11.30)
[2022-04-14 07:53] LABS: Bun/Creatinine Ratio 49.6 (12.0-20.0); Calcium, Blood 9.3 mg/dL (8.5-10.1); Creatinine, Blood 0.73 mg/dL (0.60-1.20); Potassium, Blood 4.9 mmol/L (3.5-5.5)
--- NOTE | 2022-04-14 19:59 | NUR ---
SHIFT SUMMARY PATIENT ALERT AND ORIENTED AND MI'KMAQ THROUGHOUT SHIFT. MORBIDLY OBESE, FULL ASSIST FOR REPOSITIONING AND TRANSFERS WITH OVERHEAD MECH LIFT. CHAVARRIA IN PLACE FOR URINARY RETENTION. GENERALIZED EDEMA. SKIN DRY THROUGHOUT. REDNESS AND SCALING TO BILAT LE. TOLERATING ADA DIET AND FLUID RESTRICTION OF 1500 ML. CHRONIC BACK PAIN TREATED WITH REPOSITIONING AND TYLENOL. PLAN FOR DISCHARGE TO [facility]. REPORT GIVEN TO ACQUISITION EDITOR RN.
--- NOTE | 2022-04-15 06:44 | NUR ---
PT on light with multiple requests nearly constantly & he is removing tele repeatedly. Multiple requests with staff required at bedside nearly constantly. Dc tele order obtained from DR DEE this AM & haldol 2.5 mg IV q 6 hrs prn agitation. Attempted to medicate PT for agitation & he refused.
[2022-04-15 09:08] LABS: PCO2 Arterial 84.1 mmHg (35-45); PO2 Arterial 40.2 mmHg (80-100); pH Blood Arterial 7.25 (7.35-7.45)
[2022-04-15 09:41] LABS: BASOPHILS ABSOLUTE AUTO 0.06 K/mm3 (0.00-0.23); BASOPHILS PERCENT AUTO 0 % (0-2); EOSINOPHILS ABSOLUTE AUTO 0.28 K/mm3 (0.00-0.68); EOSINOPHILS PERCENT AUTO 2 % (0-6); Hematocrit 43.2 % (37.0-53.0); Hemoglobin 12.8 g/dL (13.5-17.5); IMMATURE GRAN ABSOLUTE AUTO 0.07 K/mm3 (0.00-0.10); IMMATURE GRAN PERCENT AUTO 0 % (0-1); LYMPHOCYTES ABSOLUTE AUTO 2.34 K/mm3 (0.84-5.20); LYMPHOCYTES PERCENT AUTO 15 % (21-46); MONOCYTES ABSOLUTE AUTO 0.77 K/mm3 (0.16-1.47); MONOCYTES PERCENT AUTO 5 % (4-13); Mean Corpuscular HGB 29.2 pg (26.0-34.0); Mean Corpuscular HGB Conc 29.6 g/dL (31.5-36.5); Mean Corpuscular Volume 98 fL (80-100); Mean Platelet Volume 10.5 fL (9.1-12.4); NEUTROPHILS ABSOLUTE AUTO 12.43 K/mm3 (1.96-9.15); NEUTROPHILS PERCENT AUTO 78 % (41-73); Platelet Count 316 K/mm3 (150-400); RDW Coefficient Variation 14.6 % (11.7-14.2); RDW Standard Deviation 53.6 fL (35.1-46.3); Red Blood Cell Count 4.39 M/mm3 (4.30-5.90); White Blood Cell Count 15.95 K/mm3 (4.00-11.30)
[2022-04-15 10:12] LABS: Albumin, Blood 3.2 g/dL (3.4-5.0); Albumin/Globulin Ratio 0.7 (0.8-1.8); Bilirubin, Total 0.5 mg/dL (0.1-1.0); Bun/Creatinine Ratio 50.8 (12.0-20.0); Calcium, Blood 9.2 mg/dL (8.5-10.1); Creatinine, Blood 0.61 mg/dL (0.60-1.20); Globulin, Blood 4.8 g/dL (2.2-4.0); Potassium, Blood 5.3 mmol/L (3.5-5.5)
[2022-04-15 10:49] LABS: International Normalized Ratio 1.16; Prothrombin Time Results 12.1 Sec (9.7-11.5)
[2022-04-15 10:51] LABS: Albumin, Blood 3.2 g/dL (3.4-5.0); Anion Gap 6 mmol/L (6-16); Blood Urea Nitrogen 31 mg/dL (8-24); Bun/Creatinine Ratio 50.8 (12.0-20.0); CO2, Blood 29 mmol/L (21-32); Calcium, Blood 9.4 mg/dL (8.5-10.1); Chloride, Blood 103 mmol/L (98-108); Creatinine, Blood 0.61 mg/dL (0.60-1.20); Glomerular Filtration Rate 103 (60-); Glucose, Blood 293 mg/dL (70-99); Phosphorus, Blood 3.9 mg/dL (2.5-4.9); Potassium, Blood 5.3 mmol/L (3.5-5.5); Sodium, Blood 138 mmol/L (136-145)
--- NOTE | 2022-04-15 10:51 | NUR ---
LATE ENTRY: AT 0745 DID AN ACCU-CHEK FOR BG. RESULTING BG WAS 167.
--- NOTE | 2022-04-15 10:58 | NUR ---
TRANSITION TO ICU RAPID RESPONSE CALLED THIS AM TO MEDICAL FLOOR WITH PT IN RESPIRATORY DISTRESS. PT BROUGHT TO ICU AT 0915. DR CEBALLOS AT BEDSIDE WITH RT FOR INTUBATION. 0920: 20G IV PLACED IN R HAND 0921: 4MG VERSED 0922: 50MG PROPOFOL 0923: INTUABATED WITH 8.0 TUBE, 25CM AT GUMS. AC/VC 18/550/10/100% 0925: 50MG PROPOFOL 0926: 50MG ROCURONIUM 0935: PROPOFOL GTT STARTED AND INFUSING AT 20MCG/KG/MIN. 0949: 50MG ROCURONIUM PT BECOMING HYPOTENSIVE. LEVOPHED GTT ORDERED. 0950: LEVOPHED GTT STARTED AT 3MCG/MIN. CENTRAL LINE PLACED BY DR CEBALLOS. PLACEMENT VERIFIED BY XRAY. ASSESSMENT: NEURO: SEDATED AND PARALYZED FOR INTUBATION. PUPILS 2MM, EQUAL, REACTIVE TO LIGHT. RESP: COARSE AND DIMINISHED THROUGHOUT. SPUTUM PINK AND FROTHY POST INTUBATION, SPUTUM SAMPLE SENT TO LAB. FIO2 DECREASED TO 80%. CARDIAC: AFIB ON MONITOR WITH RBBB. HR 70S-80S. PT BECOMING HYPOTENSIVE WITH SBP IN 80S. STRONG RADIAL PULSES, FAINT PEDAL PULSES. GI: OGT PLACED. PLACEMENT VERIFED AND CONNECTED TO LOW INT SUCTION. IMMEDIATE RETURN OF APPROX 100ML BROWN BILE. ABDOMEN SOFT, BOWEL TONES ACTIVE. : CHAVARRIA PATENT AND DRAINING YELLOW URINE TO GRAVITY. SCROTUM SWOLLEN. SKIN: PALE, M[place]OZA. BILATERAL LOWER EXTREMITIES AND FEET VERY DRY, PEELING SKIN. POOR FOOT HYGEINE.
[2022-04-15 12:15] LABS: Influenza A, PCR NEGATIVE (NEGATIVE); Influenza B, PCR NEGATIVE (NEGATIVE); Resp Syncytial Virus, PCR NEGATIVE (NEGATIVE); SARS-Cov-2 (COVID-19) PCR, MMC NEGATIVE (NEGATIVE)
[2022-04-15 12:55] LABS: PCO2 Arterial 45.9 mmHg (35-45); PO2 Arterial 157 mmHg (80-100); pH Blood Arterial 7.48 (7.35-7.45)
--- NOTE | 2022-04-15 15:10 | NUR ---
CODE STATUS/GOALS OF CARE DISCUSSION DR. CEBALLOS AND PT'S SON HAD LENGHTY DISCUSSION ABOUT CODE STATUS, GOALS OF CARE INCLUDING POSSIBLE TRACHEOSTOMY EARLIER THIS SHIFT - PT'S SON CALLS BACK AND STATES THAT HE HAD A DISCUSSION WITH STEPMOTHER, AND THEY WISH TO PROCEED WITH DNR AT THIS TIME, AND THAT THEY WOULD NOT WANT TO PROCEED WITH TRACHEOSTOMY IF IT GETS TO THAT POINT. JUAN DELGADILLO, WITNESSES THIS PHONE CALL. DR. CEBALLOS UPDATED ON PLAN OF CARE.
--- NOTE | 2022-04-15 16:00 | NUR ---
ASSUME CARE: I have assumed care of patient at this time.
--- NOTE | 2022-04-15 17:02 | NUR ---
AFLUTTER: Sustained atrial flutter at rate of 60 noted on monitor
--- NOTE | 2022-04-15 18:42 | NUR ---
SHIFT SUMMARY: Pt transferred to ICU from medical floor after rapid response was called. Pt was intubated in ICU shortly after. Pt changed from full code to DNR. NEURO: Currently sedated on 35 of propofol. Paused propofol for 1600 assessment. Pt does not open eyes, but he does grimmace, lift his head off bed, and moves upper extremities spontaneously. Cardiac: atrial flutter at 60 bpm on compliance monitor. levophed on standby, pressures stable Respiratory: vent settings AC/VC 18/550/10/50% , pink tinged sputum in-line with copious oral secretions. GI/: Reece catheter draining reese urine to gravity. OG in place with tube feeds running at 25 ml/hr with 30ml free water flush q4 hrs. Creamy discharge draining from uretheral meatus. Psych/Social: pt's son very tearful at bedside for a short time this evening.
[2022-04-16 03:27] LABS: BASOPHILS ABSOLUTE AUTO 0.04 K/mm3 (0.00-0.23); BASOPHILS PERCENT AUTO 1 % (0-2); EOSINOPHILS ABSOLUTE AUTO 0.15 K/mm3 (0.00-0.68); EOSINOPHILS PERCENT AUTO 2 % (0-6); Hemoglobin 10.1 g/dL (13.5-17.5); IMMATURE GRAN ABSOLUTE AUTO 0.03 K/mm3 (0.00-0.10); IMMATURE GRAN PERCENT AUTO 0 % (0-1); LYMPHOCYTES ABSOLUTE AUTO 1.51 K/mm3 (0.84-5.20); LYMPHOCYTES PERCENT AUTO 18 % (21-46); MONOCYTES ABSOLUTE AUTO 0.65 K/mm3 (0.16-1.47); MONOCYTES PERCENT AUTO 8 % (4-13); Mean Corpuscular HGB 29.1 pg (26.0-34.0); Mean Corpuscular HGB Conc 30.6 g/dL (31.5-36.5); Mean Corpuscular Volume 95 fL (80-100); Mean Platelet Volume 10.6 fL (9.1-12.4); NEUTROPHILS ABSOLUTE AUTO 6.05 K/mm3 (1.96-9.15); NEUTROPHILS PERCENT AUTO 72 % (41-73); Platelet Count 232 K/mm3 (150-400); RDW Coefficient Variation 15.1 % (11.7-14.2); RDW Standard Deviation 52.4 fL (35.1-46.3); Red Blood Cell Count 3.47 M/mm3 (4.30-5.90); White Blood Cell Count 8.43 K/mm3 (4.00-11.30)
[2022-04-16 03:46] LABS: Albumin, Blood 2.6 g/dL (3.4-5.0); Anion Gap 3 mmol/L (6-16); Blood Urea Nitrogen 39 mg/dL (8-24); Bun/Creatinine Ratio 47.6 (12.0-20.0); CO2, Blood 35 mmol/L (21-32); Calcium, Blood 9.1 mg/dL (8.5-10.1); Chloride, Blood 103 mmol/L (98-108); Creatinine, Blood 0.82 mg/dL (0.60-1.20); Glomerular Filtration Rate 95 (60-); Glucose, Blood 146 mg/dL (70-99); Phosphorus, Blood 1.9 mg/dL (2.5-4.9); Potassium, Blood 4.2 mmol/L (3.5-5.5); Sodium, Blood 141 mmol/L (136-145)
--- NOTE | 2022-04-16 06:16 | NUR ---
SHIFT SUMMERY PT CONTINUES TO BE VENTED VIA ETT. TOLERATING VENT WELL WITH PROPOFOL AT 35MCGS. BP HAS BEEN WNL, NO PRESSORS NEEDED OVERNIGHT. PT IS AT GOAL WITH TUBE FEEDINGS, NO RESIDUALS OVERNIGHT. NO ACUTE DISTRESS DURING THE SHIFT.
--- NOTE | 2022-04-16 07:15 | NUR ---
TOOK OVER CARE OF PT AT 0700, PT ON AC/VC 18/550/10/50%, 35 OF PROPOFOL RUNNING, LEVO ON STANDBY.
--- NOTE | 2022-04-16 09:51 | NUR ---
Spiritual Care Visit. Pt. is unresponsive when I enter the room. Pt. is intubated. This wreath machine operator identified himself and prayed for the Pt. While praying Dr. Blum arrived to check on Pt. Pt. began to respond to this wreath machine operator and Dr. Blum. The Pt. could respond to yes/no questions, by nodding. Pt. displayed evidence of discomfort in his chest and in his throat. Pt. displayed evidence that he understands that he has family who are praying for him. This wreath machine operator will reach out with spiritual care to NOK son by telephone.
--- NOTE | 2022-04-16 11:31 | NUR ---
Spiritual Care: Phone Call to Pts. son David [NOK] David is listed as Next of Kin and I this director special education contacted him by phone. Updated son on the Spiritual Care visit that was made this am (approx. 9:40)/ Facilited discussion with regard to how family is holding up with the Pts. hospitalization and condition. David shared that there are three other brothers (one younger and two older) and that he (David) was seeking to make sure they would put past differences aside. David expects two older brothers to visit over the weekend. Apparently a younger brother visited Pt. last eveing. David verbalized that eve did not play an important role in the family growing up. This director special education verbalized that the Pt. is aware that people are praying for him and indicated so by nodding his head in affirmation. 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
--- NOTE | 2022-04-16 18:55 | NUR ---
SUMMARY NEURO- PT FOLLOWING COMMANDS EQUALLY IN ALL EXTREMETIES WIHT 15MCG OF PROPOFOL. SLEEPY, NO AGITATION AT THIS TIME. CARDIAC; A FLUTTER, EDEMA BLE AND SCROTUM DECREASING LUNGS; PEEP 10, 40%- BILAT UPPER LOBES CLEAR BUT DIMINISHED SKIN; CHRONIC BLE M[place] REDNESS GI/; NO BM THIS SHIFT, SEE URINE OUTOUT I/O, LASIX GIVEN TODAY
--- NOTE | 2022-04-16 20:00 | NUR ---
Assumed Care. Alert, able to answer yes and no questions. Able to track and follow directions. Reports pain, will medicate. Swallow, gag, and cough all intact. Does not like suctioning, tends to fight back some when doing oral care. Small amount of thick becerril secreations noted. AC/VC vent settings: 18/550/10/40%. Lung sounds diminished. Sats >90%. Sinus on the montior at this time. Rate in the 60's. Distant. Abd large round, BT hypoactive. OG with TF at goal 35ml/hr. No residuals. Skin with mj legs. BLE edema, Scrutum edema has improved but still in a sling. powder applied to all skin folds. diaphortic, fan placed to help. Propofol running at 15 for light sedation. Restraints in place. Will continue to monitor.
[2022-04-17 03:33] LABS: BASOPHILS ABSOLUTE AUTO 0.04 K/mm3 (0.00-0.23); BASOPHILS PERCENT AUTO 1 % (0-2); EOSINOPHILS ABSOLUTE AUTO 0.12 K/mm3 (0.00-0.68); EOSINOPHILS PERCENT AUTO 2 % (0-6); Hematocrit 33.2 % (37.0-53.0); Hemoglobin 10.2 g/dL (13.5-17.5); IMMATURE GRAN ABSOLUTE AUTO 0.02 K/mm3 (0.00-0.10); IMMATURE GRAN PERCENT AUTO 0 % (0-1); LYMPHOCYTES ABSOLUTE AUTO 1.42 K/mm3 (0.84-5.20); LYMPHOCYTES PERCENT AUTO 18 % (21-46); MONOCYTES ABSOLUTE AUTO 0.63 K/mm3 (0.16-1.47); MONOCYTES PERCENT AUTO 8 % (4-13); Mean Corpuscular HGB 29.1 pg (26.0-34.0); Mean Corpuscular HGB Conc 30.7 g/dL (31.5-36.5); Mean Corpuscular Volume 95 fL (80-100); Mean Platelet Volume 10.4 fL (9.1-12.4); NEUTROPHILS ABSOLUTE AUTO 5.86 K/mm3 (1.96-9.15); NEUTROPHILS PERCENT AUTO 72 % (41-73); Platelet Count 229 K/mm3 (150-400); RDW Coefficient Variation 15.5 % (11.7-14.2); RDW Standard Deviation 53.4 fL (35.1-46.3); White Blood Cell Count 8.09 K/mm3 (4.00-11.30)
[2022-04-17 03:53] LABS: Albumin, Blood 2.7 g/dL (3.4-5.0); Anion Gap 6 mmol/L (6-16); Blood Urea Nitrogen 39 mg/dL (8-24); Bun/Creatinine Ratio 53.4 (12.0-20.0); CO2, Blood 34 mmol/L (21-32); Calcium, Blood 8.5 mg/dL (8.5-10.1); Chloride, Blood 104 mmol/L (98-108); Creatinine, Blood 0.73 mg/dL (0.60-1.20); Glomerular Filtration Rate 98 (60-); Glucose, Blood 160 mg/dL (70-99); Phosphorus, Blood 3.4 mg/dL (2.5-4.9); Potassium, Blood 3.7 mmol/L (3.5-5.5); Sodium, Blood 144 mmol/L (136-145)
--- NOTE | 2022-04-17 05:18 | NUR ---
SHIFT SUMMARY: Mau has been opening his eyes, trying to communicate w/ staff. Able to answer yes and no questions, tried to write and verbalize words. Reminded him of Ett tube and explained the situation on what happened. He did report pain in lower back which fentanyl has been given twice. He did continue to get aggitated t/o the night banging on the side of bed, propofol was turned up to 25mcq/hr and he was given versed for ease. LS clear diminished in bases, AC vent settings 18/550/10/40%. Tolerating well, Sats >90%. Secreations clear thick small. Sinus on the monitor rate in the 60's. Abd soft, BT hypoactive. OG with VHP tube feeding at goal rate of 35ml/hr. residuals 0. Edema in scrotum and ble have improved. Kanu skin on the BLE and thighs. Powder in creases. Reece clear yellow with 1350 output. No other changes to note. Will continue to monitor.
--- NOTE | 2022-04-17 07:55 | NUR ---
TOOK OVER CARE OF PT AT 0700, PT VENTED ON /40%/10, SEDATED WITH 25 OF PROPOFOL
--- NOTE | 2022-04-17 11:22 | NUR ---
DR. CEBALLOS NOTIFIED OF PVC'S AND PAUSES
--- NOTE | 2022-04-17 12:02 | NUR ---
PT ON SPONTANEOUS 5/6 40%, PROP AT 5
--- NOTE | 2022-04-17 17:56 | NUR ---
SUMMARY PT ON PRESSURE SUPPORT, 10MCG OF PROPOFOL NEURO; FOLLOWS COMMANDS, USES COMMUNICATION BOARD LUNGS;DIMINISHED THROUGHOUT, UPPER LOBES CLEAR CARDIAC; AFLUTTER WITH SOME PVC'S AND PAUSES THROUGHOUT DAY, AWARE, STRIP PRINTED IN CHART. GI:TF INCREASED TO GOAL RATE ; PT GIVEN LASIX WHITH 1400 OUT AFTER DOSE
[2022-04-18 03:42] LABS: Albumin, Blood 2.6 g/dL (3.4-5.0); Anion Gap 5 mmol/L (6-16); Blood Urea Nitrogen 39 mg/dL (8-24); Bun/Creatinine Ratio 49.1 (12.0-20.0); CO2, Blood 34 mmol/L (21-32); Calcium, Blood 8.8 mg/dL (8.5-10.1); Chloride, Blood 106 mmol/L (98-108); Glomerular Filtration Rate 95 (60-); Glucose, Blood 164 mg/dL (70-99); Phosphorus, Blood 3.8 mg/dL (2.5-4.9); Potassium, Blood 3.8 mmol/L (3.5-5.5); Sodium, Blood 145 mmol/L (136-145)
--- NOTE | 2022-04-18 06:10 | NUR ---
SHIFT SUMMARY PT INITIALLY ON LOW DOSE PROPOFOL AND PRESSURE SUPPORT. PT ABLE TO FOLLOW COMMANDS AND ATTEMPTING TO COMMUNICATE WITH COMMUNICATION BOARD. PT VERY ANXIOUS, PROPOFOL GTT INCREASED TO 35MCG/KG/MIN AND VENT BACK ON AC. VENT SETTINGS-AC:18/550/40% c PEEP 5 AND O2 SATS >90%. TF CONTINUES AT GOAL, NO BM. CHAVARRIA CATH DRAINING NILES URINE. NO SIGNIFICANT ACUTE CHANGES IN PT CONDITION DURING THE NIGHT.
--- NOTE | 2022-04-18 07:00 | NUR ---
TOOK OVER CARE OF PT AT 0700, PT VENTED ON A/C VC18/550/40%/5 WITH 35MCG OF PROPOFOL. NO BM OVER NIGHT, NOTIFIED
--- NOTE | 2022-04-18 18:44 | NUR ---
SUMMARY NO CHANGES, NO BM-MIRALAX ORDERED
--- NOTE | 2022-04-18 21:03 | NUR ---
SHIFT ASSESSMENT ASSUMED CARE OF PT @ 1900. PT INTUBATED AND SEDATED, WILL WAKE TO STIMULI. ABLE TO WEAKLY SQUEEZE BOTH HANDS. PROPOFOL @ 35MCG'S. VENT SETTINGS- AC:18/450/5/40% c O2 SATS >90%. TF INFUSING AT GOAL. CHAVARRIA CATH PATENT, DRAINNG YELLOW URINE. VSS. WILL MONITOR CLOSELY.
[2022-04-19 03:58] LABS: Albumin, Blood 2.5 g/dL (3.4-5.0); Anion Gap 5 mmol/L (6-16); Blood Urea Nitrogen 36 mg/dL (8-24); Bun/Creatinine Ratio 46.2 (12.0-20.0); CO2, Blood 33 mmol/L (21-32); Calcium, Blood 8.8 mg/dL (8.5-10.1); Chloride, Blood 107 mmol/L (98-108); Creatinine, Blood 0.78 mg/dL (0.60-1.20); Glomerular Filtration Rate 96 (60-); Glucose, Blood 192 mg/dL (70-99); Phosphorus, Blood 3.5 mg/dL (2.5-4.9); Potassium, Blood 3.9 mmol/L (3.5-5.5); Sodium, Blood 145 mmol/L (136-145)
--- NOTE | 2022-04-19 06:39 | NUR ---
SHIFT SUMMARY NO ACUTE CHANGES OVERNIGHT. VENT SETTINGS REMAIN THE SAME. PT GIVEN BRIEF SEDATION VACATION, ABLE TO FOLLOW COMMANDS BUT BECOMES SLIGHTLY FRUSTRATED WITH THE ET TUBE AND COMMUNICATING. PT BACK ON PROPOFOL @ 35MCG'S, AROUSABLE AND ABLE TO FOLLOW COMMANDS. NO BM. REPORT TO ONCOMING NURSE.
--- NOTE | 2022-04-19 09:07 | NUR ---
TOOK OVER CARE OF PT AT 0850, PT VENTED ON AC VC 18/550/40%/5, PT SEDATED ON 35MCG OF PROPOFOL DRIP
--- NOTE | 2022-04-19 12:27 | NUR ---
PT PLACED ON SPONTANEOUS 04/01 40%
--- NOTE | 2022-04-19 14:09 | NUR ---
PT EXTUBATED WITH RT AND , PT PLACED ON 4L NC
--- NOTE | 2022-04-19 17:43 | NUR ---
SUMMARY PT EXTUBATED TODAT AROUND 1400, PT ABLE TO CONVERSE WITH STAFF AND . HE IS ABLE TO USE THE SUCTION NEEDED AND USING ORAL SWABS WITHOUT COUGHING OR SIGNS OF ASPIRATION. PT ALSO HAD A LARGE BM TODAY.
--- NOTE | 2022-04-19 19:30 | NUR ---
PT REPORT RECIEVED, SAFETY CHECK COIMPLETE, ASSUMED PT CARE. PT IS A&OX4 AND ABLE TO USE CALL LIGHT WICH WAS PLACED IN REACH. PT IN NO DISTRESS ON NC WITH 2LPM. PT STATES THAT HE IS WILLING TO GO ON BIPAP AROUND 2200.
[2022-04-20 04:39] LABS: Albumin, Blood 2.8 g/dL (3.4-5.0); Anion Gap 3 mmol/L (6-16); Blood Urea Nitrogen 31 mg/dL (8-24); Bun/Creatinine Ratio 46.6 (12.0-20.0); CO2, Blood 33 mmol/L (21-32); Chloride, Blood 108 mmol/L (98-108); Creatinine, Blood 0.67 mg/dL (0.60-1.20); Glomerular Filtration Rate 100 (60-); Glucose, Blood 134 mg/dL (70-99); Potassium, Blood 4.2 mmol/L (3.5-5.5); Sodium, Blood 144 mmol/L (136-145)
--- NOTE | 2022-04-20 06:31 | NUR ---
SHIFT SUMMERY. PT HAS NEED ORIENTED THROUHGOUT THE NIGHT. PT INITIALLY ASKED WHAT THE PURPLE DNR BAND MEANS AND STATES THAT HE WANTS TO BE A FULL CODE AND THAT HIS SON WHO "MADE ME A DNR SHOULD NOT BE MAKING DECISIONS FOR ME!" DR. AMARAL NOTIFIED AND ORDER CHANGED TO FULL CODE. PT HAS NOT SLEPT AND USES THE CALL LIGHT FREQUENTLY AND SEEMS NOT TO WANT TO USE THE BiPAP, THOUGH PT HAS MOSTLY BEEN COMPLIANT AND HAS TOLLERATED THE CURRENT SETTINGS: FiO2 35% 11/04. PT STATES THAT HE WOULD LIKE TO HAVE HIS SON DELMI VASQUEZ TO BE INVOLVED WITH HIS DECISION MAKING, BUT HE CAN NOT FIND DELMI'S PHONE NUMBER AT THIS TIME.
--- NOTE | 2022-04-20 13:31 | NUR ---
UPDATE PT TRANSFERRED TO PCU. REPORT GIVEN TO CARLOTA MARTINEZ
--- NOTE | 2022-04-20 13:50 | NUR ---
ASSUMPTION OF CARE HAND-OFF REPORT RECEIVED. PT IS CURRENTLY SITTING UP IN BED VISITING WITH SPIRITUAL CARE PROVIDER.
--- NOTE | 2022-04-20 15:02 | NUR ---
Spiritual Care Notes. Pt. is awake and in bed, and welcomes my visit. Pt. is unsettled that the pillows that had been positioned to give him relief had been moved by a physician. Pt. displays evidence of visceral pain. Provided an calming presence and build rapport. While visiting, Nurse arrives to provide pain medication for the Pt. Pt. requests that nurse adjust his pillows. Nurse suggests that we finish spiritual care visit and he will return to assist Pt. Prayed with Pt. Pt. verbalized gratitude for the spiritual care visit. This child protective investigator notified nurse that we had completed the spiritual care visit.
--- NOTE | 2022-04-20 15:16 | NUR ---
UPDATE PT REQUESTED TO BE PLACED BACK ON BIPAP THEY WISHED TO ATTEMPT TO TAKE A NAP.
--- NOTE | 2022-04-20 17:44 | NUR ---
SHIFT SUMMARY PT HAS BEEN RESTING IN BED. PT HAS CALLED FOR ASSISTANCE, FREQUENTLY, FOR ALL MANNER OF THINGS. PT WILL CALL FOR ASSISTANCE WITH REPOSITIONING FOR PRESSURE RELATED DISCOMFORT. PT REMAINED ON BIPAP FOR APPROXIMATELY ONE HOUR FOR A NAP AND CALLED FOR ASSISTANCE WITH REMOVING. PT ATTEMPTED TO HAVE A BOWEL MOVEMENT WITH A BEDPAN, BUT AFTER 10 MINUTES OF BEING ON THE BEDPAN ASKED FOR IT TO BE REMOVED. VSS, NO ACUTE CHANGES IN PT CONDITION.
--- NOTE | 2022-04-20 20:45 | NUR ---
ASSUMED CARE OF PATIENT AT APPROXIMATELY 1900 FROM CARLOTA Matos RN. PATIENT ALERT AND ORIENTED X4; CALLS STAFF TO ROOM TO TALK AND REPOSISTION ABOUT EVERY 30 MINUTES. PATIENT REPORTS PAIN IN KNEES AND REQUESTED PRN CREAM APPLIED AND PILLOWS PLACED UNDER EACH KNEE; PATIENT COMPLAINS OF LOWER BACK; MEDICATED PER EMAR WITH TYLENOL AND REPOSISTIONED. PATIENT DENIES DIZZINESS AND NAUSEA. LIFT TO REPOSISTION PATIENT; CAN ASSIST WHEN TURNING TO SIDE FOR BEDPAN; HAD BM THIS SHIFT; URINARY CATH PATENT AND DRAINING. AFLUTTER AT 60 ON TELE; OXYGEN SATURATION ABOVE 90% ON 2LPM VIA NC; WILL WEAR BIPAP WHEN SLEEPING. PIV AND R CENTRAL LINE S/L.
[2022-04-21 04:24] LABS: BASOPHILS ABSOLUTE AUTO 0.03 K/mm3 (0.00-0.23); BASOPHILS PERCENT AUTO 0 % (0-2); EOSINOPHILS PERCENT AUTO 4 % (0-6); Hematocrit 33.7 % (37.0-53.0); Hemoglobin 10.2 g/dL (13.5-17.5); IMMATURE GRAN ABSOLUTE AUTO 0.03 K/mm3 (0.00-0.10); IMMATURE GRAN PERCENT AUTO 0 % (0-1); LYMPHOCYTES ABSOLUTE AUTO 1.25 K/mm3 (0.84-5.20); LYMPHOCYTES PERCENT AUTO 15 % (21-46); MONOCYTES ABSOLUTE AUTO 0.58 K/mm3 (0.16-1.47); MONOCYTES PERCENT AUTO 7 % (4-13); Mean Corpuscular HGB 29.1 pg (26.0-34.0); Mean Corpuscular HGB Conc 30.3 g/dL (31.5-36.5); Mean Corpuscular Volume 96 fL (80-100); Mean Platelet Volume 10.7 fL (9.1-12.4); NEUTROPHILS ABSOLUTE AUTO 6.28 K/mm3 (1.96-9.15); NEUTROPHILS PERCENT AUTO 74 % (41-73); Platelet Count 238 K/mm3 (150-400); RDW Standard Deviation 52.5 fL (35.1-46.3); Red Blood Cell Count 3.51 M/mm3 (4.30-5.90); White Blood Cell Count 8.47 K/mm3 (4.00-11.30)
[2022-04-21 04:27] LABS: Bicarbonate Venous 30.8 mmol/L (24.0-30.0); PCO2 Venous 54.5 mmHg (38-42); PO2 Venous 34.2 mmHg (38-42)
[2022-04-21 04:45] LABS: Albumin, Blood 2.9 g/dL (3.4-5.0); Anion Gap 3 mmol/L (6-16); Blood Urea Nitrogen 26 mg/dL (8-24); Bun/Creatinine Ratio 40.4 (12.0-20.0); CO2, Blood 34 mmol/L (21-32); Calcium, Blood 8.9 mg/dL (8.5-10.1); Chloride, Blood 106 mmol/L (98-108); Creatinine, Blood 0.64 mg/dL (0.60-1.20); Glomerular Filtration Rate 102 (60-); Glucose, Blood 129 mg/dL (70-99); Phosphorus, Blood 3.2 mg/dL (2.5-4.9); Potassium, Blood 4.1 mmol/L (3.5-5.5); Sodium, Blood 143 mmol/L (136-145)
--- NOTE | 2022-04-21 06:15 | NUR ---
PATIENT SLEPT ABOUT FIVE HOURS LAST NIGHT WITH BIPAP IN PLACE. CURRENTLY SITTING ON SIDE OF BED LISTENING TO MUSIC; COMPLAINED OF PAIN IN BACK AND LEGS; CREAM APPLIED PER ORDER. NO OTHER ACUTE CHANGES TO REPORT.
--- NOTE | 2022-04-21 09:21 | NUR ---
AM NOTE: PATIENT ALERT AND ORIENTED X4. VERY HAPPY AND ENJOYS CONVERSING WITH STAFF. PERRLA. WEARING GLASSES AND HEARING AIDS. OVERALL WEAKNESS. UNABLE TO WALK AT THIS TIME. PLAN TO WORK WITH PT/OT TODAY. SITTING ON EDGE OF BED. AT TIMES COMPLAINS OF LOWER BACK PAIN. ALSO COMPLAINS OF LEFT WRIST PAIN THAT WOKE PATIENT UP. LEFT WRIST PAIN RELIEVED WITH ELEVATION. ON 2L 02 VIA NASAL CANNULA SATING MID 90'S. OCCASIONAL COUGH THIS AM. LUNGS SOUNDING CLEAR AND DIM. TELE SHOWING AFLUTTER WITH HR 60'S. DENIES CHEST PAIN/PRESSURE. BP STABLE. NITRO PASTE TO LEFT UPPER CHEST. TOLERATING PO DIET. CHAVARRIA CATH IN PLACE DRAINING URINE TO GRAVITY. SCROTAL SWELLING IMPROVING. CENTRAL LINE TO RIGHT UPPER CHEST, PLAN TO DC TODAY (ON DAY 7). CALL LIGHT IN REACH. WILL CONTINUE TO MONITOR.
--- NOTE | 2022-04-21 12:21 | NUR ---
Spiritual Care Visit. Pt is awake and welcomes my visit. Pt. verbalizes that he is prepping for discharge for [facility]. The Pt. is pleasant and bouyant as he prepares to discharge and we re re-establish rapport. Facilitate a significant life review and learn about his historic family presence in [place]. Explored issues of eve and belief. Prayed with Pt. Pt. verbalized gratitude for the spiritual care visit.
[2022-04-21] MEDS ORDERED: DOCU100 PO (12:49)
[2022-04-21] MEDS ORDERED: MIRALAX17 GM PO (12:51)
[2022-04-21 13:34] LABS: SARS-Cov-2 (COVID-19) PCR, MMC NEGATIVE (NEGATIVE)
--- NOTE | 2022-04-21 17:39 | NUR ---
DISCHARGE TO FACILITY: NO ACUTE CHANGES, SEE PREVIOUS NOTE. VITAL SIGNS REMAINS STABLE. NO CHANGES TO RESPIRATORY, CARDIAC, OR GI/. NEURO REMAINS UNCHANGED. TRILOGY BROUGHT IN AND INSTRUCTIONS REVIEWED WITH PATIENT. FITTED FOR MASK. CHAVARRIA CATH REMOVED AND PIV REMOVED WNL. REPORT CALLED TO CRISELDA. DISCHARGE INSTRUCTIONS, MEDICATIONS, TRILOGY, AND FOLLOW UP APPOINTMENTS REVIEWED WITH PATIENT. PENDING TRANSFER AT THIS TIME. PLAN FOR TRANSFER AT 1800.
--- NOTE | 2022-04-21 19:14 | NUR ---
TRANSFER AT 1845. USED LIFT TO TRANSFER PATIENT TO [facility], HANDED OFF REPORT TO EMS TRANSFER. PATIENT LEFT UNIT WITH ALL PERSONAL BELONGINGS, INCLUDING TRILOGY AND HOME O2.
== END 2022-04-21 18:48 | DRG 280 ==
LOC: ER 14:32 → ICUE 22:49 → MEDS 22:49 → ICUW 04-08 14:16 → MEDS 04-12 15:40 → ICUE 04-15 09:15 → ICUW 04-19 07:39 → PCU 04-20 11:43
PROVIDERS: Family Medicine; Internal Medicine; Internal Medicine Critical Care Medicine; Student in an Organized Health Care Education/Training Program; ADMIT Internal Medicine
PROC: 0BH17EZ Insertion of Endotracheal Airway into Trachea, Via Natural or Artificial Opening (ICD-10-PCS; principal; 2022-04-15)
PROC: 02HV33Z Insertion of Infusion Device into Superior Vena Cava, Percutaneous Approach (ICD-10-PCS; 2022-04-15)
DX: I11.0 Hypertensive heart disease with heart failure (principal); J96.21 Acute and chronic respiratory failure with hypoxia; I21.A1 Myocardial infarction type 2; J96.22 Acute and chronic respiratory failure with hypercapnia; G92.8 Other toxic encephalopathy; I50.33 Acute on chronic diastolic (congestive) heart failure; N39.0 Urinary tract infection, site not specified; I48.20 Chronic atrial fibrillation, unspecified; E66.2 Morbid (severe) obesity with alveolar hypoventilation; Z68.43 Body mass index [BMI] 50.0-59.9, adult; Z20.822 Contact with and (suspected) exposure to COVID-19; N50.89 Other specified disorders of the male genital organs; I50.810 Right heart failure, unspecified; I27.20 Pulmonary hypertension, unspecified; E11.65 Type 2 diabetes mellitus with hyperglycemia; B95.61 Methicillin susceptible Staphylococcus aureus infection as the cause of diseases classified elsewhere; Z66 Do not resuscitate; K59.00 Constipation, unspecified; R33.9 Retention of urine, unspecified; M19.90 Unspecified osteoarthritis, unspecified site; G47.33 Obstructive sleep apnea (adult) (pediatric); E87.70 Fluid overload, unspecified; R60.1 Generalized edema; E78.00 Pure hypercholesterolemia, unspecified; G93.89 Other specified disorders of brain; F41.9 Anxiety disorder, unspecified; F42.9 Obsessive-compulsive disorder, unspecified; Z87.891 Personal history of nicotine dependence; Z79.82 Long term (current) use of aspirin; Z79.4 Long term (current) use of insulin; Z79.899 Other long term (current) drug therapy; I25.2 Old myocardial infarction; Z74.01 Bed confinement status; Z79.01 Long term (current) use of anticoagulants; Z87.442 Personal history of urinary calculi; Z91.14 Patient's other noncompliance with medication regimen
CPT/HCPCS: 0241U; 31500; 31720; 36415; 36556; 36600; 51702; 51703; 71045; 76705; 76870; 80048; 80053; 80069; 81001; 82803; 82947; 83605; 83735; 83880; 84484; 85025; 85027; 85610; 87070; 87077; 87086; 87147; 87186; 87205; 93005; 93010; 93308; 93321; 94002; 94003; 94640; 94660; 94664; 94760; 94762; 96374-59; 96375-59; 97110; 97112; 97161; 97162; 97166; 97530; 97535; 99285-25; A9270; C1751; C9113; J0360; J0696; J1630; J1815; J1940; J2250; J2704; J3010; J7030; J7060; U0004

== ENCOUNTER 2024-11-07 06:06 | Day surgery (SDC) | payer OTHER ==
[~2024-11-07] VITALS: Ht 177.8 cm; Wt 176.2 kg
[~2024-11-07 06:06] MED LIST changes: +Balanced Salt Epinephrine Irrigation Solution 500 mL IR SCH; +DOCU100 PO; +Lidocaine HCl/Pf 1% 5 ML VIAL XX SCH; +MIRALAX17 GM PO; +Moxifloxacin HCL 0.5 MG/0.1 ML 0.4MLSYR LEFTEYE SCH; +PHENYLEPHRINE\\TROPICAMIDE\\TETRACAINE OPHTHALMIC DILATING SOLN LEFTEYE PRN; +Povidone-Iodine 450 DROP/30 ML Solution LEFTEYE SCH; +Triamcinolone Inj Susp 40 MG / ML 1ML Vial INJ SCH
[2024-11-07] MEDS ORDERED: Tetracaine HCl/Pf 0.5% Opth Soln 4 ml ONE (06:08)
[2024-11-07] MEDS ORDERED: Povidone-Iodine 450 DROP/30 ML Solution ONE (06:08)
[2024-11-07] MEDS ORDERED: Triamcinolone Inj Susp 40 MG / ML 1ML Vial ONE (06:35)
[2024-11-07] MEDS ORDERED: Lidocaine HCl/Pf 1% 5 ML VIAL ONE (06:35)
[2024-11-07] MEDS ORDERED: CELE100 PO (06:54)
[2024-11-07] MEDS ORDERED: ALDACTONE25 MG PO (06:55)
[2024-11-07] MEDS ORDERED: COMBIVENT RESPIM4 G1 IH (06:56)
[2024-11-07] MEDS ORDERED: MULTIVITAMIN (06:57)
[2024-11-07] MEDS ORDERED: VITAMIN B12 (06:57)
[2024-11-07] MEDS ORDERED: VITAMIN D (06:57)
--- NOTE | 2024-11-07 07:17 | NUR ---
11/07/24 0717 Mariia Bustos 0637: ON ANXIETY SCALE, PT REPORTED 0/10 ANXIETY AND STATES "I'M FINE"
[2024-11-07 08:10] VITALS: BP 149/70
== END 2024-11-07 08:07 | disposition home or self-care (01) ==
LOC: ORSCSDS 06:06
PROVIDERS: Ophthalmology
PROC: 08RK3JZ Replacement of Left Lens with Synthetic Substitute, Percutaneous Approach (ICD-10-PCS; principal; 2024-11-07 07:30)
DX: H25.813 Combined forms of age-related cataract, bilateral (principal); E11.36 Type 2 diabetes mellitus with diabetic cataract; I25.2 Old myocardial infarction; I10 Essential (primary) hypertension; E66.01 Morbid (severe) obesity due to excess calories; Z68.43 Body mass index [BMI] 50.0-59.9, adult; G47.33 Obstructive sleep apnea (adult) (pediatric); Z79.01 Long term (current) use of anticoagulants; Z79.4 Long term (current) use of insulin; Z79.84 Long term (current) use of oral hypoglycemic drugs; Z79.899 Other long term (current) drug therapy
CPT/HCPCS: 82947; J2003; J3301; V2632

== ENCOUNTER 2024-11-14 09:46 | Day surgery (SDC) | payer OTHER ==
[~2024-11-14] VITALS: Ht 177.8 cm; Wt 176.8 kg
[~2024-11-14 09:46] MED LIST changes: +ALDACTONE25 MG PO; +COMBIVENT RESPIM4 G1 IH; +MULTIVITAMIN; -Moxifloxacin HCL 0.5 MG/0.1 ML 0.4MLSYR LEFTEYE SCH; +Moxifloxacin HCL 0.5 MG/0.1 ML 0.4MLSYR RIGHTEYE SCH; -PHENYLEPHRINE\\TROPICAMIDE\\TETRACAINE OPHTHALMIC DILATING SOLN LEFTEYE PRN; +PHENYLEPHRINE\\TROPICAMIDE\\TETRACAINE OPHTHALMIC DILATING SOLN RIGHTEYE PRN; -Povidone-Iodine 450 DROP/30 ML Solution LEFTEYE SCH; +Povidone-Iodine 450 DROP/30 ML Solution ONE; +Povidone-Iodine 450 DROP/30 ML Solution RIGHTEYE SCH; +Tetracaine HCl/Pf 0.5% Opth Soln 4 ml ONE; +Triamcinolone Inj Susp 40 MG / ML 1ML Vial ONE; +VITAMIN B12; +VITAMIN D
--- NOTE | 2024-11-14 10:34 | NUR ---
11/14/24 1034 Amanda Vargas PT TOOK VALIUM AT 0930 RATED 0, STATED CALM
[2024-11-14 12:23] VITALS: BP 130/79
== END 2024-11-14 12:13 | disposition home or self-care (01) ==
LOC: ORSCSDS 09:46
PROVIDERS: Ophthalmology
PROC: 08RJ3JZ Replacement of Right Lens with Synthetic Substitute, Percutaneous Approach (ICD-10-PCS; principal; 2024-11-14 11:30)
DX: E11.36 Type 2 diabetes mellitus with diabetic cataract (principal); H25.811 Combined forms of age-related cataract, right eye; H52.201 Unspecified astigmatism, right eye; Z96.1 Presence of intraocular lens; Z87.891 Personal history of nicotine dependence; E11.9 Type 2 diabetes mellitus without complications; I10 Essential (primary) hypertension; G47.33 Obstructive sleep apnea (adult) (pediatric); I25.2 Old myocardial infarction; E66.9 Obesity, unspecified; Z68.43 Body mass index [BMI] 50.0-59.9, adult; Z79.01 Long term (current) use of anticoagulants; Z79.4 Long term (current) use of insulin; Z79.84 Long term (current) use of oral hypoglycemic drugs; Z79.899 Other long term (current) drug therapy
CPT/HCPCS: 82947; J3301; V2632